=== PATIENT | female | born 1960 | race Caucasian/White ===

== ENCOUNTER 2017-01-23 18:34 | Inpatient (IN) | payer OTHER ==
[2017-01-23 18:55] VITALS: BMI 31.5
[2017-01-23] MEDS ORDERED: ALBUTEROL SO4 2.5/IPRATROPIUM 0.5 INH SOL 3 ML VIAL.NEB. NEB ONE ×2 (19:40→21:46)
--- NOTE | 2017-01-23 21:03 | PDOC ---
History of Present Illness - General Chief Complaint: Shortness of Breath Stated Complaint: SOB/BLOOD CLOT ON RT LEG Time Seen by Provider: 01/23/17 19:27 History Source: Patient Exam Limitations: No Limitations - History of Present Illness Initial Comments: 01/23/17 20:57 56yo Female patient w/ PmHx: Lupus- Sjogren's syndrome and asthma presents to ED c/o trouble breathing and Rt lower extremity swelling. Patient reports this past Thursday, she thought she felt a muscle spasm in her right leg, that progressed to pain in calf radiating up to buttocks. Patient states the following day, she developed chest pain and back pain w/ trouble breathing. She states using her Albuterol INH w/ minimal relief. Denies fever, hemoptysis, rectal bleeding, confusion, disorientation, or any other complaints at this time. Associated sweating reported. PCP- Lisette Zapien Timing/Duration: reports: week Severity: reports: moderate Episode Description: See HPI Possible Cause: Yes: no prior episodes Modifying Factors: improves with: albuterol nebulizer Associated Symptoms: reports: chest pain/soreness, shortness of breath, wheezing. denies: cough, dizziness, earache, facial pain, fever/chills, headache, lightheadedness, muscle aches, nasal congestion, nasal drainage, sinus infection, sore throat Past History - Travel Traveled outside of the country in the last 30 days: No Close contact w/someone who was outside of country & ill: No - Past Medical History Allergies/Adverse Reactions: Allergies Allergy/AdvReac Type Severity Reaction Status Date / Time aspirin AdvReac Intermediate Difficulty Verified 01/23/17 20:37 Breathing Home Medications: Ambulatory Orders Montelukast Sodium [Singulair] 10 mg PO DAILY 04/29/12 Acetaminophen W/ Codeine #3 [Tylenol # 3 -] 1 tab PO BID PRN #0 tablet 03/15/13 Albuterol 0.083% Nebulizer Bailey [Ventolin 0.083% Nebulizer Soln -] 1 neb NEB QID PRN #0 vial 03/15/13 Albuterol Sulfate Inhaler - [Ventolin HFA Inhaler -] 1 inh IH Q6H PRN #0 inh Bupropion HCl [Budeprion Xl] 150 mg PO DAILY #0 tab.sr.24h 05/28/13 Dexlansoprazole [Dexilant -] 60 mg PO DAILY #0 03/15/13 Folic Acid - 1 mg PO DAILY #0 tablet 03/15/13 Hydroxychloroquine So4 [Plaquenil -] 200 mg PO BID #0 tablet 03/15/13 Methotrexate [Mexate -] 6 tab PO WEEKLY #0 tablet 03/15/13 Multivitamin [Multivitamins] 1 each PO DAILY #0 capsule 03/15/13 Salmeterol/Fluticasone [Advair 500Mcg/50Mcg -] 1 inh IH DAILY #0 inh 03/15/13 Anemia: Yes Asthma: Yes DVT: Yes Other medical history: LUPUS - Surgical History Abdominal Surgery: Yes (gastric bypass,02/2013 ABD SURGERY) Cholecystectomy: Yes GI Surgery: Yes (SBO) - Psycho/Social/Smoking Cessation Hx Anxiety: No Suicidal Ideation: No Smoking Status: No Smoking History: Never smoked Have you smoked in the past 12 months: No Number of Cigarettes Smoked Daily: 0 Hx Alcohol Use: No Drug/Substance Use Hx: No Substance Use Type: None Hx Substance Use Treatment: No Respiratory Specific PMHX - Complaint Specific PMHX Angina: No Bronchitis: No Pneumonia: No Pulmonary Embolus: No TB (Tuberculosis): No Review of Systems - Review of Systems Able to Perform ROS?: Yes Is the patient limited Tristanian proficient: No Constitutional: No: Chills, Fever, Malaise, Night Sweats HEENTM: No: Nose Congestion, Nose Bleeding Respiratory: Yes: Shortness of Breath, Wheezing. No: Cough, Orthopnea, SOB with Exertion, SOB at Rest, Stridor, Productive cough Cardiac (ROS): Yes: Chest Pain. No: Edema, Lightheadedness, Palpitations, Syncope, Chest Tightness ABD/GI: No: Constipated, Diarrhea, Nausea, Poor Appetite, Poor Fluid Intake, Rectal Bleeding, Vomiting, Abdominal cramping : No: Burning, Dysuria, Discharge, Frequency, Flank Pain, Hematuria, Pain Musculoskeletal: Yes: Back Pain, Muscle Pain (Rt Leg) Integumentary: Yes: Sweating. No: Bruising, Erythema, Pruritus, Rash Neurological: No: Headache, Numbness, Paresthesia, Seizure, Tingling, Tremors, Weakness, Unsteady Gait, Ataxia, Dizziness All Other Systems: Reviewed and Negative *Physical Exam - Vital Signs Last Vital Signs Temp Pulse Resp BP Pulse Ox 98.3 F 102 H 20 132/68 99 01/23/17 18:50 01/23/17 18:50 01/23/17 18:50 01/23/17 18:50 01/23/17 18:50 - Physical Exam General Appearance: Yes: Nourished, Appropriately Dressed, Apparent Distress, Mild Distress. No: Moderate Distress, Severe Distress HEENT: positive: EOMI, CAMMIE, Normal ENT Inspection, Normal Voice, Symmetrical, TMs Normal, Pharynx Normal. negative: Pharyngeal Erythema, Tonsillar Exudate, Tonsillar Erythema, TM Bulging, TM Dull, TM Erythema Neck: positive: Trachea midline, Supple. negative: Stridor, Lymphadenopathy (R) , Lymphadenopathy (L) Respiratory/Chest: positive: Wheezing. negative: Respiratory Distress, Accessory Muscle Use, Labored Respiration, Rapid RR, Decreased Breath Sounds, Paradoxal Breathing Cardiovascular: positive: Regular Rhythm, Regular Rate. negative: Edema, JVD, Murmur Gastrointestinal/Abdominal: positive: Normal Bowel Sounds, Soft. negative: Distended, Guarding, Rebound, Tenderness Musculoskeletal: positive: Normal Inspection. negative: CVA Tenderness Extremity: positive: Normal Capillary Refill, Normal Inspection, Normal Range of Motion, Swelling, Calf Tenderness (+ Nitza's sign) Integumentary: positive: Normal Color, Dry, Warm Neurologic: positive: hospital manager II-XII NML intact, Fully Oriented, Alert, Normal Mood/ Affect, Normal Response, Motor Strength 5/5 ED Treatment Course - LABORATORY CBC & Chemistry Diagram: 01/23/17 22:13 01/23/17 22:13 - RADIOLOGY Radiology Studies Ordered: Category Date Time Status CHEST PA & LAT [RAD] Stat Radiology 01/23/17 19:40 Ordered DUPLEX VASCUL US-1 LEG [US] Stat Ultrasound 01/23/17 19:40 Ordered *DC/Admit/Observation/Transfer Diagnosis at time of Disposition: Deep vein thrombosis (DVT) Qualifiers: DVT location: lower extremity Affected thrombotic vein of extremity: unspecified vein of extremity Laterality: right Chronicity: acute Qualified Code (s): I82.401 - Acute embolism and thrombosis of unspecified deep veins of right lower extremity Pulmonary embolism Qualifiers: Pulmonary embolism type: other Chronicity: acute Acute cor pulmonale presence: without acute cor pulmonale Qualified Code(s): I26.99 - Other pulmonary embolism without acute cor pulmonale - Discharge Dispostion Condition at time of disposition: Fair Admit: Yes
[2017-01-23] MEDS ORDERED: ACETAMINOPHEN WITH CODEINE 300MG/30MG TABLET PO ONE (22:19)
[2017-01-23 22:25] LABS: MCH 21.1 pg (25.7-33.7); MCHC 30.5 g/dl (32.0-36.0); MEAN CELL VOLUME 69.2 fl (80-96); MEAN PLT VOLUME 7.9 fl (7.5-11.1); PLATELET COUNT 397 K/MM3 (134-434); RDW 20.6 % (11.6-15.6); WHITE BLOOD COUNT 9.2 K/mm3 (4.0-10.0)
[2017-01-23] MEDS ORDERED: ACETAMINOPHEN WITH CODEINE 300MG/30MG TABLET ONE (22:39)
[2017-01-23 23:01] LABS: ALBUMIN 3.2 g/dl (3.4-5.0); ANION GAP 10 (8-16); BILIRUBIN,TOTAL 0.4 mg/dL (0.2-1.0); CALCIUM 8.6 mg/dL (8.5-10.1); CO2 27 mmol/L (21-32); COCKROFT - GAULT 115.515; CREATININE 0.6 mg/dL (0.55-1.02); GLUCOSE,RANDOM 84 mg/dL (74-106); SGOT/AST 15 U/L (15-37); SGPT/ALT 10 U/L (12-78); TOT PROT 8.4 g/dl (6.4-8.2)
[2017-01-23 23:03] LABS: ALK PHOS 120 U/L (45-117); TROPONIN I < 0.02 ng/ml (0.00-0.05)
[2017-01-23 23:42] LABS: INR 1.15 (0.82-1.09); PROTHROMBIN TIME (PATIENT) 12.7 SEC (9.98-11.88)
[2017-01-23 23:45] LABS: ACTIVATED PTT 28.7 SECONDS (26.9-34.4)
[2017-01-24 00:27] LABS: ANISOCYTOSIS 2+; HYPOCHROMIA 2+; MICROCYTOSIS 2+; PLATELET COMMENT2 NO CLOTTING DETECTED; PLATELET COMMENT3 FEW LARGE PLTS; PLATELET ESTIMATE ADEQUATE (NORMAL); POIKILOCYTOSIS 2+; POLYCHROMASIA 1+; SPHEROCYTE 1+
[2017-01-24] MEDS ORDERED: ENOXAPARIN NA (PORCINE) 80 MG/0.8 ML DISP.SYRIN SQ SCH (00:45)
[2017-01-24] MEDS ORDERED: ENOXAPARIN NA (PORCINE) 80 MG/0.8 ML DISP.SYRIN SQ ONE ×2 (00:45→00:48)
[2017-01-24] MEDS ORDERED: ENOXAPARIN NA (PORCINE) 40 MG/0.4 ML DISP.SYRIN SQ ONE ×2 (00:47→03:12)
[2017-01-24] MEDS ORDERED: OXYCODONE/APAP 5/325MG COMBO TABLET PO ONE ×3 (01:22→19:01)
[2017-01-24] MEDS ORDERED: OXYCODONE/APAP 5/325MG COMBO TABLET ONE ×2 (02:00→18:59)
--- NOTE | 2017-01-24 02:28 | HP ---
[id number] Puja Lorenzo HISTORY OF PRESENT ILLNESS: 56 year old female with complaint of difficulty breathing and right lower extremity swelling. Patient reports right LE swelling and pain radiating to the buttocks since . Patient states the following day, she developed chest pain and back pain with associated SOB. She reports SOB relief after use of her abuterol and nebulizer. Patient had a LE duplex done 01/05/16 and left leg was negative for DVT. Denies fever, chills, hemoptysis, nausea, vomiting, diarrhea, constipation, rectal bleeding, confusion, disorientation, headache or vision changes. ER course was notable for: (1) Chest CTA (2) LE vascular duplex Recent Travel: none PAST MEDICAL HISTORY: LE DVT, Lupus, Sjogren's syndrome, fibromyalgia and asthma PAST SURGICAL HISTORY: cholecystectomy, gastric bypass,02/2013, IVC filter in place, splenectomy, SBO, decealisis Social History: Smoking: no Alcohol: no Drugs: no Family History: mother asthma, thrombosis; father heart disease history Allergies aspirin Adverse Reaction (Intermediate, Verified 01/23/17 20:37) Difficulty Breathing Triggers asthma attack HOME MEDICATIONS: Home Medications Medication Instructions Recorded Montelukast Sodium [Singulair] 10 mg PO DAILY 04/29/12 Acetaminophen W/ Codeine #3 1 tab PO BID PRN #0 tablet 03/15/13 [Tylenol # 3 -] Albuterol 0.083% Nebulizer Bailey 1 neb NEB QID PRN #0 vial 03/15/13 [Ventolin 0.083% Nebulizer Soln -] Albuterol Sulfate Inhaler - 1 inh IH Q6H PRN #0 inh 03/15/13 [Ventolin HFA Inhaler -] Bupropion HCl [Budeprion Xl] 150 mg PO DAILY #0 tab.sr.24h 03/15/13 Dexlansoprazole [Dexilant -] 60 mg PO DAILY #0 03/15/13 Folic Acid - 1 mg PO DAILY #0 tablet 03/15/13 Hydroxychloroquine So4 [Plaquenil 200 mg PO BID #0 tablet 03/15/13 -] Methotrexate [Mexate -] 6 tab PO WEEKLY #0 tablet 03/15/13 Multivitamin [Multivitamins] 1 each PO DAILY #0 capsule 05/28/13 Salmeterol/Fluticasone [Advair 1 inh IH DAILY #0 inh 03/15/13 500Mcg/50Mcg -] REVIEW OF SYSTEMS CONSTITUTIONAL: Absent: fever, chills, diaphoresis, generalized weakness, malaise, loss of appetite, weight change HEENT: Absent: rhinorrhea, nasal congestion, throat pain, throat swelling, difficulty swallowing, mouth swelling, ear pain, eye pain, visual changes CARDIOVASCULAR: Present: chest pain Absent: syncope, palpitations, irregular heart rate, lightheadedness, peripheral edema RESPIRATORY: Present: SOB Absent: cough, dyspnea with exertion, orthopnea, wheezing, stridor, hemoptysis GASTROINTESTINAL: Absent: abdominal pain, abdominal distension, nausea, vomiting, diarrhea, constipation, melena, hematochezia GENITOURINARY: Absent: dysuria, frequency, urgency, hesitancy, hematuria, flank pain, genital pain MUSCULOSKELETAL: Present: R LE pain Absent: myalgia, arthralgia, joint swelling, back pain, neck pain SKIN: Absent: rash, itching, pallor HEMATOLOGIC/IMMUNOLOGIC: Absent: easy bleeding, easy bruising, lymphadenopathy, frequent infections ENDOCRINE: Absent: unexplained weight gain, unexplained weight loss, heat intolerance, cold intolerance NEUROLOGIC: Absent: headache, focal weakness or paresthesias, dizziness, unsteady gait, seizure, mental status changes, bladder or bowel incontinence PSYCHIATRIC: Absent: anxiety, depression, suicidal or homicidal ideation, hallucinations. PHYSICAL EXAMINATION Vital Signs - 24 hr 01/23/17 18:50 Temperature 98.3 F Pulse Rate 102 H Respiratory 20 Rate Blood Pressure 132/68 O2 Sat by Pulse 99 Oximetry (%) GENERAL: Awake, alert, and fully oriented, in no acute distress. HEAD: Normal with no signs of trauma. EYES: Pupils equal, round and reactive to light, extraocular movements intact, sclera anicteric, conjunctiva clear. No lid lag. EARS, NOSE, THROAT: Ears normal, nares patent, oropharynx clear without exudates. Moist mucous membranes. NECK: Normal range of motion, supple without lymphadenopathy, JVD, or masses. LUNGS: +Bilateral basal crackles. Breath sounds equal. No wheezes. No accessory muscle use. HEART: Regular rate and rhythm, normal S1 and S2 without murmur, rub or gallop. ABDOMEN: Soft, nontender, not distended, normoactive bowel sounds, no guarding, no rebound, no masses. No hepatomegaly or splenomegaly. MUSCULOSKELETAL: Normal range of motion at all joints. No bony deformities or tenderness. No CVA tenderness. UPPER EXTREMITIES: 2+ pulses, warm, well-perfused. No cyanosis. No clubbing. No peripheral edema. LOWER EXTREMITIES: +Vessels engorged R LE, +R LE edema, +palpable pulses, warm, well-perfused. No calf tenderness NEUROLOGICAL: Cranial nerves II-XII intact. Normal speech. Normal gait. PSYCHIATRIC: Cooperative. Good eye contact. Appropriate mood and affect. SKIN: Warm, dry, normal turgor, no rashes or lesions noted, normal capillary refill. Laboratory Results - last 24 hr 01/23/17 01/23/17 01/23/17 20:20 20:20 20:20 WBC Cancelled Corrected WBC (auto) Cancelled RBC Cancelled Hgb Cancelled Hct Cancelled MCV Cancelled MCHC Cancelled RDW Cancelled Plt Count Cancelled MPV Cancelled Neutrophils % Cancelled Lymphocytes % Cancelled Monocytes % Cancelled Eosinophils % Cancelled Basophils % Cancelled Band Neutrophils Differential Comment Cancelled Smudge Cells Cancelled Platelet Estimate Cancelled Platelet Comment Cancelled RBC Morphology Cancelled Polychromasia Hypochromic-Microcytic Poikilocytosis Anisocytosis Microcytosis Spherocytes INR Cancelled PTT (Actin FS) Cancelled Sodium Cancelled Potassium Cancelled Chloride Cancelled Carbon Dioxide Cancelled Anion Gap Cancelled BUN Cancelled Creatinine Cancelled Creat Clearance w eGFR Cancelled Random Glucose Cancelled Calcium Cancelled Total Bilirubin Cancelled AST Cancelled ALT Cancelled Alkaline Phosphatase Cancelled Creatine Kinase Cancelled Troponin I Cancelled B-Natriuretic Peptide Cancelled Total Protein Cancelled Albumin Cancelled 01/23/17 01/23/17 01/23/17 22:13 22:13 22:13 WBC 9.2 D Corrected WBC (auto) RBC 4.14 Hgb 8.7 L D Hct 28.7 L MCV 69.2 L MCHC 30.5 L RDW 20.6 H Plt Count 397 MPV 7.9 Neutrophils % 70.0 D Lymphocytes % 21.0 D Monocytes % 6.0 Eosinophils % 2.0 Basophils % Band Neutrophils 2.0 D Differential Comment Smudge Cells Platelet Estimate Adequate Platelet Comment No clotting detected RBC Morphology Polychromasia 1+ Hypochromic-Microcytic 2+ Poikilocytosis 2+ Anisocytosis 2+ Microcytosis 2+ Spherocytes 1+ INR 1.15 H PTT (Actin FS) 28.7 D Sodium 140 Potassium 3.8 Chloride 103 Carbon Dioxide 27 Anion Gap 10 BUN 9 Creatinine 0.6 Creat Clearance w eGFR > 60 Random Glucose 84 Calcium 8.6 Total Bilirubin 0.4 D AST 15 ALT 10 L D Alkaline Phosphatase 120 H Creatine Kinase 70 Troponin I < 0.02 B-Natriuretic Peptide Total Protein 8.4 H Albumin 3.2 L IMAGING: EXAM: US/DUPLEX VASCUL US-1 LEG Right lower extremity Doppler venous ultrasound. Grayscale, pulsed Doppler and color Doppler interrogation of the right lower extremity deep venous system was performed. The right common femoral vein, superficial femoral vein, popliteal and posterior tibial vein were identified with normal flow and compression of the common femoral and proximal superficial femoral. There is noncompression of the mid common femoral down to the popliteal vein with some flow seen in the popliteal vein consistent with deep venous thrombosis. Flow is present within the posterior tibial vein with suggestion of partial thrombosis. Greater saphenous and deep femoral vein are patent No Church's cyst is identified in the popliteal fossa. Impression: Findings consistent with deep venous thromboses extending from the mid superficial femoral down to the distal portion of the popliteal vein with suggestion of partial thrombosis of the posterior tibial vein. Follow-up is needed Reported By: Gwendolyn Hui MD 01/23/17 [id number] EXAM:RAD/CHEST PA LAT Since 03/10/2013, the cardiac silhouette remains slightly enlarged with mild unfolding of the aortic arch. Bilateral increased interstitial markings again seen with suggestion of a small hiatus hernia. Minimal blunting of the left costophrenic angle suggestive of pleural thickening versus minimal effusion. Notes made of surgical metallic clips in the right upper abdomen. Mediastinum and visualized osseous structures appear intact Impression: Mild cardiomegaly and bilateral increased interstitial markings without evidence of focal infiltrates. Questionable minimal left pleural effusion. Small hiatus hernia that was also noted on prior CT scan of the abdomen dated 01/05/2016 Reported By: Gwendolyn Hui MD 01/23/17 [id number] THIS IS A PRELIMINARY REPORT FROM [facility] EXAM DATE AND TIME: 2017-01-23 23:54:50.0 EXAM: CTA CHEST Nodular scarring right upper lobe, advise follow-up. Pulmonary emboli right upper lobe. No aortic dissection or aneurysm. No pneumonia or pleural effusions. Subcentimeter cysts and calcifications right thyroid lobe. Cholecystectomy. Surgical changes stomach. Moderate hiatal hernia. THIS DOCUMENT HAS BEEN ELECTRONICALLY SIGNED Danica Frederick M.D. Documentation prepared by DAVID Tobias, acting as medical administrator for Eliz Diaz MD. <Eliz Diaz - Last Filed: 02/12/17 01:00> Problem List - Problem (1) Deep vein thrombosis (DVT) of right lower extremity Assessment/Plan: Lovenox 1.5mg/kg daily consider hematology consult for permanent anticoagulation recommendations Code(s): I82.401 - ACUTE EMBOLISM AND THOMBOS UNSP DEEP VEINS OF R LOW EXTREM (2) Pulmonary embolism Assessment/Plan: Anticoagulation ECHO Code(s): I26.99 - OTHER PULMONARY EMBOLISM WITHOUT ACUTE COR PULMONALE Qualifiers: Pulmonary embolism type: other Chronicity: acute Acute cor pulmonale presence: without acute cor pulmonale Qualified Code(s): I26.99 - Other pulmonary embolism without acute cor pulmonale (3) H/O Sjogren's disease Code(s): Z87.39 - PERSONAL HISTORY OF DISEASES OF THE MS SYS AND CONN TISS (4) H/O systemic lupus erythematosus (SLE) Code(s): Z87.39 - PERSONAL HISTORY OF DISEASES OF THE MS SYS AND CONN TISS (5) H/O deep venous thrombosis Assessment/Plan: Code(s): Z86.718 - PERSONAL HISTORY OF OTHER VENOUS THROMBOSIS AND EMBOLISM Visit type - Emergency Visit Emergency Visit: Yes ED Registration Date: 01/24/17 Care time: The patient presented to the Emergency Department on the above date and was hospitalized for further evaluation of their emergent condition. - New Patient This patient is new to me today: Yes Date on this admission: 02/12/17 - Critical Care Critical Care patient: No
[2017-01-24] MEDS ORDERED: ZOLPIDEM TARTRATE 5 MG TABLET PO STA (03:11)
[2017-01-24] MEDS ORDERED: ENOXAPARIN NA (PORCINE) 100 MG/1 ML DISP.SYRIN SQ ONE (04:05)
--- NOTE | 2017-01-24 15:09 | CONSULT ---
Consult Consult Specialty:: Hematology/Oncology Referred by:: Reason for Consultation:: New DVT and pulmonary emboli - History of Present Illness Chief Complaint: Shortness of Breath History of Present Illness: is a 56 y/o female with a past medical history of SLE, Sjogrens and fibromyalgia diagnosed in 1996.She follows with Medical Staff Manager and has been on treatment that includes plaquenil, she is on gabapentin for treatment of her fibromyalgia. She had a Paul IVC filter placed in 1996 due to thrombosis. She subsequently had another DVT in 2007? on the left side. She has had gastric sleeve surgery in 2007 complicated by intestinal obstruction, splenic rupture, liver laceration. She has had vascular procedures for peripheral vascular disease with previously. She now presented to the hospital as she had been having shortness of breath since thursday last week which progressed to the point that she could not lay down straight and had to sleep in a sitting up position by . She then came to the [facility] ED where work-up revealed the presence of a large right LE DVT and multiple small pulmonary emboli. also says that of late -she ahs been having increased flare up of her SLE/Sjogrens which usually presents like joint swelling. She is a non-smoker, non-drinker, lives with her grandson, has 4 living children and Hx of 2 spontaneous miscarriages in the past. 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 Cardio/Vascular: Yes: Deep Vein Thrombosis Pulmonary: Yes: Asthma Gastrointestinal: Yes: Other (Hx of intestinal obstruction ) Hepatobiliary: Yes: Other (asplenia ) Reproductive: Yes: Other ( losses ) ...LMP: 01/22/12 ...: No Musculoskeletal: Yes: Other (fibromyalgia ) Rheumatology: Yes: Lupus, Other (Sjogrens syndrome ) - Alcohol/Substance Use Hx Alcohol Use: No History of Substance Use: reports: None - Smoking History Smoking history: Never smoked Have you smoked in the past 12 months: No Aproximately how many cigarettes per day: 0 - Social History Usual Living Arrangement: With Child History of Recent Travel: No Home Medications - Allergies Allergies/Adverse Reactions: Allergies Allergy/AdvReac Type Severity Reaction Status Date / Time aspirin AdvReac Intermediate Difficulty Verified 01/23/17 20:37 Breathing - Home Medications Home Medications: Ambulatory Orders Montelukast Sodium [Singulair] 10 mg PO DAILY 04/29/12 Acetaminophen W/ Codeine #3 [Tylenol # 3 -] 1 tab PO BID PRN #0 tablet 03/15/13 Albuterol 0.083% Nebulizer Bailey [Ventolin 0.083% Nebulizer Soln -] 1 neb NEB QID PRN #0 vial 03/15/13 Albuterol Sulfate Inhaler - [Ventolin HFA Inhaler -] 1 inh IH Q6H PRN #0 inh Bupropion HCl [Budeprion Xl] 150 mg PO DAILY #0 tab.sr.24h 03/15/13 Dexlansoprazole [Dexilant -] 60 mg PO DAILY #0 cap.mp 03/15/13 Folic Acid - 1 mg PO DAILY #0 tablet 03/15/13 Hydroxychloroquine So4 [Plaquenil -] 200 mg PO BID #0 tablet 03/15/13 Methotrexate [Mexate -] 6 tab PO WEEKLY #0 tablet 03/15/13 Multivitamin [Multivitamins] 1 each PO DAILY #0 capsule 03/15/13 Salmeterol/Fluticasone [Advair 500Mcg/50Mcg -] 1 inh IH DAILY #0 inh 03/15/13 Gabapentin [Neurontin] 300 mg PO BID 01/24/17 Review of Systems - Review of Systems Respiratory: reports: SOB Musculoskeletal: reports: Other (right leg swelling) Physical Exam Vital Signs: Vital Signs Temperature 98.3 F 01/24/17 11:18 Pulse Rate 78 01/24/17 11:18 Respiratory Rate 18 01/24/17 11:18 Blood Pressure 131/71 01/24/17 11:18 O2 Sat by Pulse Oximetry (%) 100 01/24/17 11:18 Constitutional: Yes: Well Nourished Eyes: Yes: WNL HENT: Yes: WNL Neck: Yes: WNL Cardiovascular: Yes: WNL Respiratory: Yes: CTA Bilaterally Gastrointestinal: Yes: WNL Renal/: Yes: WNL Breast(s): Yes: WNL Musculoskeletal: Yes: WNL Extremities: Yes: WNL Edema: Yes Edema: RLE: 1+ Integumentary: Yes: WNL Neurological: Yes: WNL ...Motor Strength: WNL Psychiatric: Yes: WNL Assessment/Plan 56 y/o female with Hx of SLE/Sjogrens, fibromyalgia, asthma , Hx of multiple prior DVT's with Green filed IVC filter in place per her report now admitted with an acute right lower extremity DVT and pulmonary emboli. Tests performed during this admission include a vascular study of lower extremities which showed a large DVT extending from mid superficial femoral to distal popliteal vein with partial thrombosis in posterior tibial vein. CT chest performed during this admission shows the presene of acute pulmonary emboli in right upper lobe artery , posterior segmental branch of right lower lobe artery, multiple pulmonary opacities and a right axillary lymph node that is increased in size from prior - 1.3 cms now from 0.9 cms before recommendations are as follows - agree with primary team forinitiation of low molecular weight heparin (lovenox ) for now (initiate treatment at 1 mg/kg Q12H) with plan to bridge to a NOAC ( choice would be dictated by patient preference and coverage). Patient needs lifelong anticoagulation given her high risk with previous unprovoked DVT's. -Unclear if patient has serological work-up for antiphospholipid syndrome, please request records from her service worker , if not, she needs to follow with Hematology to initiate work-up once she is over this acute episode -would request vascular surgery also on board to asses patency of filter, need for filter replacement if filter has itself become a nidus for thrombus formation -request surgical consult for biopsy of right axillary lynph node for malignancy work-up as node has increased in size over time. Please also request records from her PCP about recent mammograms, colon cancer screening etc to see if she has undergone age appropriate screening -patient also has anemia with Hgb of 8.7 on labs with a low MCV. This coupled with Hx of gastric bypass surgery is a concern for iron deficiency along with micronutrient deficiency. Please obtain iron panel ( serum iron, ferritin, TIBC , transferrin) and copper levels. -Will continue to follow, please call with further questions.
--- NOTE | 2017-01-24 16:19 | EKG ---
Test Reason : Blood Pressure : / mmHG Vent. Rate : 080 BPM Atrial Rate : 080 BPM P-R Int : 144 ms QRS Dur : 100 ms QT Int : 400 ms P-R-T Axes : 043 -13 007 degrees QTc Int : 461 ms NORMAL SINUS RHYTHM POSSIBLE ANTERIOR INFARCT , AGE UNDETERMINED ABNORMAL ECG WHEN COMPARED WITH ECG OF 10-MAR-2013 11:44, NO SIGNIFICANT CHANGE WAS FOUND Confirmed by WALESKA RAINEY MD ([id number]) on 01/24/2017 4:19:12 PM Referred By: Confirmed By:WALESKA RAINEY MD
[2017-01-24] MEDS ORDERED: ALBUTEROL SO4 0.083% IH SOL 2.5 MG/3 ML VIAL.NEB. NEB PRN (16:43)
[2017-01-24] MEDS ORDERED: ENOXAPARIN NA (PORCINE) 120 MG/0.8 ML DISP.SYRIN SQ ONE (17:28)
--- NOTE | 2017-01-24 17:34 | HOSP ---
Subjective - Review of Symptoms Subjective: pt evaluated and hemodynamiclly stable. mild pleuritic CP on deep inspiration, pain and swelling in RLE improved Plan 1. DVT/PE- concern for patency of IVC filter, will consult vascular surgeon to assess if IVC filter require replacement. pt was on coumadin in the past and stopped. will require life-long anticoagulation due to risk factors. will give lovenox 110mcg now. counseled on options for anticoagulation, wants time to decide and further discussion with brim buster about best option. echo pending. continuous cardiac monitoring 2. SLE- home medications re-started Physical Examination Vital Signs: Vital Signs Temperature 98.3 F 01/24/17 11:18 Pulse Rate 76 01/24/17 15:18 Respiratory Rate 19 01/24/17 15:18 Blood Pressure 130/73 01/24/17 15:18 O2 Sat by Pulse Oximetry (%) 100 01/24/17 15:18
[2017-01-24] MEDS ORDERED: ENOXAPARIN NA (PORCINE) 60 MG/0.6 ML DISP.SYRIN SQ ONE (18:12)
[2017-01-24] MEDS: GABAPENTIN 300 MG CAPSULE (FP) PO SCH (22:31)
[2017-01-24] MEDS: HYDROXYCHLOROQUINE SO4 200 MG TABLET (FP) PO SCH (22:57)
[2017-01-24] MEDS: BUDESONIDE/FORMETEROL FUMARATE 160/4.5 mcg INHALER IH SCH (22:58)
[2017-01-24] MEDS ORDERED: ACETAMINOPHEN 325 MG TABLET (FP) PO ONE (23:27)
[2017-01-24] MEDS ORDERED: guaiFENesin 200 MG/10 ML 10 ML UNIT-DOSE CUPS PO PRN (23:33)
[2017-01-25] MEDS ORDERED: oxyCODONE HCL 5 MG TABLET PO ONE (00:50)
[2017-01-25] MEDS ORDERED: ENOXAPARIN NA (PORCINE) 40 MG/0.4 ML DISP.SYRIN SQ ONE (01:00)
[2017-01-25] MEDS ORDERED: oxyCODONE HCL 5 MG TABLET ONE (01:10)
[2017-01-25] MEDS: ZOLPIDEM TARTRATE 5 MG TABLET PO PRN (01:13)
[2017-01-25] MEDS ORDERED: PT OWN MED DRAWER 7, Y5N ONE (10:21)
[2017-01-25] MEDS: GABAPENTIN 300 MG CAPSULE (FP) PO SCH ×2 (10:22→21:47)
[2017-01-25] MEDS: MONTELUKAST NA 10 MG TABLET PO SCH (10:22)
[2017-01-25] MEDS: FOLIC ACID 1 MG TABLET (FP) PO SCH (10:22)
[2017-01-25] MEDS: MULTIVITAMINS (DAILY MVI) TABLET (FP) PO SCH (10:22)
[2017-01-25] MEDS: BUDESONIDE/FORMETEROL FUMARATE 160/4.5 mcg INHALER IH SCH ×2 (10:23→21:47)
[2017-01-25] MEDS: HYDROXYCHLOROQUINE SO4 200 MG TABLET (FP) PO SCH ×2 (10:23→21:47)
--- NOTE | 2017-01-25 13:09 | PN ---
Progress Note (short form) - Note Progress Note: c/o intermittent pleuritic CP worse on deep inspiration. some mild tenderness on RLE. denies CP, SOB,fever, chills, N/V/C/D Current Medications Generic Name Dose Route Start Last Admin Trade Name Freq PRN Reason Stop Dose Admin Albuterol Sulfate 1 amp 01/24/17 16:43 Ventolin 0.083% Nebulizer Soln - NEB QID PRN WHEEZING Budesonide/Formoterol Fumarate 1 puff 01/24/17 22:00 01/25/17 10:23 Symbicort 160/4.5mcg - IH 1 puff BID MAGO Administration Bupropion HCl 150 mg 01/25/17 10:00 Wellbutrin Xl - PO DAILY MAGO Enoxaparin Sodium 110 mg 01/25/17 13:00 Lovenox - SQ DAILY MAGO Folic Acid 1 mg 01/25/17 10:00 01/25/17 10:22 Folic Acid - PO 1 mg DAILY MAGO Administration Gabapentin 300 mg 01/24/17 22:00 01/25/17 10:22 Neurontin - PO 300 mg BID MAGO Administration Guaifenesin 10 ml 01/24/17 23:33 01/24/17 23:45 Robitussin - PO 10 ml Q6H PRN Administration COUGH Hydroxychloroquine Sulfate 200 mg 01/24/17 22:00 01/25/17 10:23 Plaquenil - PO 200 mg BID MAGO Administration Methotrexate 15 mg 01/26/17 10:00 Mexate - PO Mo@10 MAGO Montelukast Sodium 10 mg 01/25/17 10:00 01/25/17 10:22 Singulair - PO 10 mg DAILY MAGO Administration Multivitamins/Minerals/Vitamin C 1 tab 01/25/17 10:00 01/25/17 10:22 Tab-A-Vit - PO 1 tab DAILY MAGO Administration Zolpidem Tartrate 5 mg 01/24/17 04:33 01/25/17 01:13 Ambien - PO 5 mg HS PRN Administration Last Vital Signs Temp Pulse Resp BP Pulse Ox 97.9 F 96 H 18 105/68 99 01/25/17 10:00 01/25/17 10:00 01/25/17 10:00 01/25/17 10:00 01/25/17 10:00 General NAD CV S1 S2 RRR no murmur/rub/extremities Lungs CTA B/L no wheezing/rales/rhonchi Extremities no edema B/L UEor LE. no tenderness Assessment and plan 56yo F with PMH SLE, DVT s/p IVC filter, sjogren presented to the ER and was admitted to the ER for further evaluation of their emergent condition 1. DVT/PE- clinically stable. started on full dose lovenox. will confirm with insurance which NOAC is covered, but cont with lovenox for now in case of procedure necessary. Vascular surgery consulted. spoke with PA and expressed concern for patency of IVC filter and if thrombectomy is indicated due to extension of DVT. will doppler B/L UE to confirm PE is not from UE. hemodynamically stable. 2. SLE- no indictions of flare at this time. on MTX, folic acid, plaquenil. ( takes mtx on thursday, did not take this week will give dose today) 3. Microcytic anemia- no signs of bleeding. Hgb appears to be at baseline. check iron studies 4. DVT ppx- full dose lovenox Visit type - Emergency Visit Emergency Visit: Yes ED Registration Date: 01/24/17 Care time: The patient presented to the Emergency Department on the above date and was hospitalized for further evaluation of their emergent condition. - New Patient This patient is new to me today: No - Critical Care Critical Care patient: No - Discharge Referral Referred to [facility] Med [facility].C.: No
[2017-01-25] MEDS ORDERED: OXYCODONE/APAP 5/325MG COMBO TABLET PO PRN (13:11)
[2017-01-25] MEDS: ENOXAPARIN NA (PORCINE) 120 MG/0.8 ML DISP.SYRIN SQ SCH (13:34)
[2017-01-25] MEDS ORDERED: METHOTREXATE 2.5 MG TABLET PO ONE (15:30)
--- NOTE | 2017-01-25 15:40 | CONSULT ---
Consult - History of Present Illness History of Present Illness: 56 y/o female with history of [place] IVC filter placed in 1996 due to thrombosis. She subsequently had another DVT in the left leg. She has not been on any anticoagulation for several years. She now presented to the hospital as she had been having shortness of breath last week. Duplex showed right LE DVT and multiple small pulmonary emboli. 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 Cardio/Vascular: Yes: Deep Vein Thrombosis Pulmonary: Yes: Asthma Gastrointestinal: Yes: Other (Hx of intestinal obstruction ) Hepatobiliary: Yes: Other (asplenia ) ...LMP: 01/22/12 ...: No Musculoskeletal: Yes: Other (fibromyalgia ) Rheumatology: Yes: Lupus, Other (Sjogrens syndrome ) - Alcohol/Substance Use Hx Alcohol Use: No History of Substance Use: reports: None - Smoking History Smoking history: Never smoked Have you smoked in the past 12 months: No Aproximately how many cigarettes per day: 0 - Social History Usual Living Arrangement: With Child History of Recent Travel: No Home Medications - Allergies Allergies/Adverse Reactions: Allergies Allergy/AdvReac Type Severity Reaction Status Date / Time aspirin AdvReac Intermediate Difficulty Verified 01/23/17 20:37 Breathing - Home Medications Home Medications: Ambulatory Orders Montelukast Sodium [Singulair] 10 mg PO DAILY 04/29/12 Acetaminophen W/ Codeine #3 [Tylenol # 3 -] 1 tab PO BID PRN #0 tablet 03/15/13 Albuterol 0.083% Nebulizer Bailey [Ventolin 0.083% Nebulizer Soln -] 1 neb NEB QID PRN #0 vial 03/15/13 Albuterol Sulfate Inhaler - [Ventolin HFA Inhaler -] 1 inh IH Q6H PRN #0 inh Bupropion HCl [Budeprion Xl] 150 mg PO DAILY #0 tab.sr.24h 03/15/13 Dexlansoprazole [Dexilant -] 60 mg PO DAILY #0 03/15/13 Folic Acid - 1 mg PO DAILY #0 tablet 03/15/13 Hydroxychloroquine So4 [Plaquenil -] 200 mg PO BID #0 tablet 03/15/13 Methotrexate [Mexate -] 6 tab PO WEEKLY #0 tablet 03/15/13 Multivitamin [Multivitamins] 1 each PO DAILY #0 capsule 03/15/13 Salmeterol/Fluticasone [Advair 500Mcg/50Mcg -] 1 inh IH DAILY #0 inh 03/15/13 Gabapentin [Neurontin] 300 mg PO BID 01/24/17 Physical Exam Vital Signs: Vital Signs Temperature 97.9 F 01/25/17 10:00 Pulse Rate 96 H 01/25/17 10:00 Respiratory Rate 18 01/25/17 10:00 Blood Pressure 105/68 01/25/17 10:00 O2 Sat by Pulse Oximetry (%) 99 01/25/17 10:00 Constitutional: Yes: No Distress Eyes: Yes: WNL HENT: Yes: WNL Neck: Yes: Supple Respiratory: Yes: Regular Gastrointestinal: Yes: Soft Edema: Yes Edema: LLE: 2+, RLE: 2+ Peripheral Pulses WNL: Yes Problem List - Problems (1) DVT (deep venous thrombosis) Assessment/Plan: New DVT in right femoral and popliteal vein in patient with past history of DVT. No history of hypercoagulable workup. Currently on Lovenox. Transition to Coumadin or NOAC. Recommend hematology consult for hypercoagulable work-up. Code(s): I82.409 - ACUTE EMBOLISM AND THOMBOS UNSP DEEP VN UNSP LOWER EXTREMITY Qualifiers: DVT location: lower extremity Affected thrombotic vein of extremity: unspecified vein of extremity Laterality: right Chronicity: acute Qualified Code(s): I82.401 - Acute embolism and thrombosis of unspecified deep veins of right lower extremity (2) Pulmonary embolism Assessment/Plan: New PE with indwelling IVC filter. No evidence for caval thrombosis (both legs would be swollen). Other source in upper extremity should be sought. Routine anticoagulation for DVT/PE recommended. I do not think a second filter is necessary unless a source can be identified. Life-long A/C will probable be needed. Code(s): I26.99 - OTHER PULMONARY EMBOLISM WITHOUT ACUTE COR PULMONALE Qualifiers: Pulmonary embolism type: other Chronicity: acute Acute cor pulmonale presence: without acute cor pulmonale Qualified Code(s): I26.99 - Other pulmonary embolism without acute cor pulmonale
[2017-01-25] MEDS ORDERED: ACETAMINOPHEN 325 MG TABLET (FP) PO PRN (16:24)
[2017-01-26 07:58] LABS: MCH 21.3 pg (25.7-33.7); MCHC 30.4 g/dl (32.0-36.0); MEAN CELL VOLUME 70.1 fl (80-96); MEAN PLT VOLUME 8.2 fl (7.5-11.1); PLATELET COUNT 428 K/MM3 (134-434); RDW 20.3 % (11.6-15.6)
[2017-01-26] MEDS ORDERED: PT OWN MED DRAWER 7, Y5N ONE ×2 (08:21→22:13)
--- NOTE | 2017-01-26 09:15 | PN ---
Progress Note (short form) - Note Progress Note: Abdominal CT from 2016 reviewed and shows that IVC filter is tilted. If the degree of tilt is > 9 degrees from the IVC long axis it is possible that the filter is not able to catch emboli from the legs. I will ask radilologiist to measure angle on CT Problem List - Problems (1) DVT (deep venous thrombosis) Code(s): I82.409 - ACUTE EMBOLISM AND THOMBOS UNSP DEEP VN UNSP LOWER EXTREMITY Qualifiers: DVT location: lower extremity Affected thrombotic vein of extremity: unspecified vein of extremity Laterality: right Chronicity: acute Qualified Code(s): I82.401 - Acute embolism and thrombosis of unspecified deep veins of right lower extremity (2) Pulmonary embolism Code(s): I26.99 - OTHER PULMONARY EMBOLISM WITHOUT ACUTE COR PULMONALE Qualifiers: Pulmonary embolism type: other Chronicity: acute Acute cor pulmonale presence: without acute cor pulmonale Qualified Code(s): I26.99 - Other pulmonary embolism without acute cor pulmonale
[2017-01-26] MEDS ORDERED: METHOTREXATE 2.5 MG TABLET PO SCH (10:00)
[2017-01-26] MEDS: GABAPENTIN 300 MG CAPSULE (FP) PO SCH ×2 (11:33→22:18)
[2017-01-26] MEDS: MULTIVITAMINS (DAILY MVI) TABLET (FP) PO SCH (11:33)
[2017-01-26] MEDS: MONTELUKAST NA 10 MG TABLET PO SCH (11:33)
[2017-01-26] MEDS: ENOXAPARIN NA (PORCINE) 120 MG/0.8 ML DISP.SYRIN SQ SCH (11:33)
[2017-01-26] MEDS: FOLIC ACID 1 MG TABLET (FP) PO SCH (11:33)
[2017-01-26] MEDS: HYDROXYCHLOROQUINE SO4 200 MG TABLET (FP) PO SCH ×2 (11:34→22:18)
[2017-01-26] MEDS: BUDESONIDE/FORMETEROL FUMARATE 160/4.5 mcg INHALER IH SCH ×3 (11:34→22:19)
[2017-01-26 11:48] LABS: ANISOCYTOSIS 1+; FRAGMENTED CELL 1+; HYPOCHROMIA 2+; MICROCYTOSIS 2+; OVALOCYTES 1+; POIKILOCYTOSIS 4+; POLYCHROMASIA 1+; SPHEROCYTE 1+; TARGET CELLS 4+; TEAR DROP CELLS 1+
[2017-01-26 11:49] LABS: ACANTHOCYTES 1+; BURR CELLS 1+
--- NOTE | 2017-01-26 13:24 | PN ---
Teaching Attending Note Name of Resident: Paty Tong ATTENDING PHYSICIAN STATEMENT I saw and evaluated the patient. I reviewed the resident's note and discussed the case with the resident. I agree with the resident's findings and plan as documented. SUBJECTIVE:c/o SOB on exertion. cough on deep inspiration, non-productive. denies CP, fever, chills, N/V/C/D OBJECTIVE: Last Vital Signs Temp Pulse Resp BP Pulse Ox 98.8 F 73 20 106/59 97 01/26/17 06:00 01/26/17 06:00 01/26/17 06:00 01/26/17 06:00 01/26/17 05:39 General NAD CV S1 S2 RRR no murmur/rub/extremities Lungs CTA B/L no wheezing/rales/rhonchi Extremities no edema B/L UEor LE. no tenderness Assessment and plan 56yo F with PMH SLE, DVT s/p IVC filter, sjogren presented to the ER and was admitted to the ER for further evaluation of their emergent condition 1. DVT/PE- clinically stable. saturating 98% on RA. doppler B/L UE negative for DVT indicating PE is likely from R DVT. concern IVC filter is not in place. ? wrong angle and may require adjustment. will d/w vascular surgery if any procedures to be done at this time. on full dose daily lovenox. will need to f/ u hematology as outpatient for furhter workup. confirm with pharmacy what NOAC covered by [employer]. echo results pending. 2. SLE- no indictions of flare at this time. on MTX, folic acid, plaquenil. ( takes mtx on thursday, did not take this week will give dose today) 3. Microcytic anemia- no signs of bleeding. Hgb appears to be at baseline. check iron studies 4. DVT ppx- full dose lovenox 5. d/c home pending recommendations by vascular surgery, (if filter in place)
--- NOTE | 2017-01-26 16:22 | PN ---
Physical Exam: SUBJECTIVE: Patient seen and examined no new complaints, still with minor shortness of breath, has improved. Denies chest pain, palpitations, lightheadedness, wheezing. leg swelling. OBJECTIVE: Vital Signs Period Temp Pulse Resp BP Sys/Clark Pulse Ox Last 24 Hr 97.8 F-99.1 F 73-89 18-20 101-113/54-66 97-99 GENERAL: The patient is awake, alert, and fully oriented, in no acute distress. HEAD: Normal with no signs of trauma. EYES: PERRL, extraocular movements intact, sclera anicteric, conjunctiva clear. No ptosis. ENT: Ears normal, nares patent, oropharynx clear without exudates, moist mucous membranes. NECK: Trachea midline, full range of motion, supple. LUNGS: decreased breath sounds as lung bases HEART: Regular rate and rhythm, S1, S2 without murmur, rub or gallop. ABDOMEN: Soft, nontender, nondistended, normoactive bowel sounds, no guarding, no rebound, no hepatosplenomegaly, no masses. EXTREMITIES: 2+ pulses, warm, well-perfused, no edema. NEUROLOGICAL: Cranial nerves II through XII grossly intact. Normal speech, gait not observed. PSYCH: Normal mood, normal affect. SKIN: Warm, dry, normal turgor, no rashes or lesions noted Laboratory Results - last 24 hr 01/26/17 01/26/17 05:35 05:35 WBC 5.0 D RBC 4.03 Hgb 8.6 L Hct 28.3 L MCV 70.1 L MCHC 30.4 L RDW 20.3 H Plt Count 428 MPV 8.2 Polychromasia 1+ Hypochromic-Microcytic 2+ Poikilocytosis 4+ Anisocytosis 1+ Microcytosis 2+ Macrocytosis Few Spherocytes 1+ Target Cells 4+ Tear Drop Cells 1+ Ovalocytes 1+ [place] Cells 1+ Acanthocytes (Spur) 1+ Fragmented RBCs 1+ Morphology Comment Slide scanned Ferritin 16.002 Active Medications Generic Name Dose Route Start Last Admin Trade Name Freq PRN Reason Stop Dose Admin Acetaminophen 325 mg 01/25/17 16:24 Tylenol - PO 01/28/17 16:23 Q4H PRN PAIN Albuterol Sulfate 1 amp 01/24/17 16:43 Ventolin 0.083% Nebulizer Soln - NEB QID PRN WHEEZING Budesonide/Formoterol Fumarate 1 puff 01/24/17 22:00 01/26/17 11:34 Symbicort 160/4.5mcg - IH 1 puff BID MAGO Administration Bupropion HCl 150 mg 01/25/17 10:00 01/26/17 11:34 Wellbutrin Xl - PO 150 mg DAILY MAGO Administration Enoxaparin Sodium 110 mg 01/25/17 13:15 01/26/17 11:33 Lovenox - SQ 110 mg DAILY MAGO Administration Folic Acid 1 mg 01/25/17 10:00 01/26/17 11:33 Folic Acid - PO 1 mg DAILY MAGO Administration Gabapentin 300 mg 01/24/17 22:00 01/26/17 11:33 Neurontin - PO 300 mg BID MAGO Administration Guaifenesin 10 ml 01/24/17 23:33 01/24/17 23:45 Robitussin - PO 10 ml Q6H PRN Administration COUGH Hydroxychloroquine Sulfate 200 mg 01/24/17 22:00 01/26/17 11:34 Plaquenil - PO 200 mg BID MAGO Administration Montelukast Sodium 10 mg 01/25/17 10:00 01/26/17 11:33 Singulair - PO 10 mg DAILY MAGO Administration Multivitamins/Minerals/Vitamin C 1 tab 01/25/17 10:00 01/26/17 11:33 Tab-A-Vit - PO 1 tab DAILY MAGO Administration Oxycodone HCl 5 mg 01/25/17 16:24 Roxicodone - PO Q4H PRN PAIN SCALE 6-10 Zolpidem Tartrate 5 mg 01/24/17 04:33 01/25/17 01:13 Ambien - PO 5 mg HS PRN Administration IMAGING: vascular study of lower extremities which showed a large DVT extending from mid superficial femoral to distal popliteal vein with partial thrombosis in posterior tibial vein. CT chest performed during this admission shows the presence of acute pulmonary emboli in right upper lobe artery , posterior segmental branch of right lower lobe artery, multiple pulmonary opacities and a right axillary lymph node that is increased in size from prior - 1.3 cms now from 0.9 cms before ASSESSMENT/PLAN: This is a 56 year old female with significant PMHx of SLE, Sjogren, asthma, PE and DVT, s/p [place] IVC filter, presents with increasing shortness of breath x one week, admitted with an acute right lower extremity DVT and pulmonary emboli. # Acute right lower extremity DVT and pulmonary emboli: -on full dose lovenox ; -IVF filter placement tomorrow late afternoon -keep patient on clear liq diet for breakfast -npo after breakfast -echo pending -doppler UE negative -vascular consulted #SLE: controlled -cont metx; folic acid, plaquenil #microcytic anemia: -iron studies pending -heme consulted FEN: Fluids: po Electrolytes: wnl Diet: see above VTE prophylaxis: full dose lovenox Disposition: surgery in am Visit type - Emergency Visit Emergency Visit: Yes ED Registration Date: 01/24/17 Care time: The patient presented to the Emergency Department on the above date and was hospitalized for further evaluation of their emergent condition. - New Patient This patient is new to me today: Yes Date on this admission: 01/26/17 - Critical Care Critical Care patient: No
[2017-01-26] MEDS: ZOLPIDEM TARTRATE 5 MG TABLET PO PRN (22:18)
[2017-01-26] MEDS: oxyCODONE HCL 5 MG TABLET PO PRN (22:45)
[2017-01-27 06:06] LABS: SERUM IRON 14 ug/dL (27-159); TOTAL IRON BINDING CAPACITY 338 ug/dL (250-450); UIBC 324 ug/dL (131-425)
--- NOTE | 2017-01-27 08:20 | PN ---
[id number] suprarenal IVC filter. Medical optimization / clearance. Type and screen ordered. INR, PTT INR 1.15 (0.82-1.09) H 01/23/17 22:13 <Elliott Hughes - Last Filed: 01/27/17 08:20> - Note Progress Note: Current IVC filter is tilted and may be allowing emboli to pass. A new filter, possibly suprarenal, will be placed to correct this deficiency. <Jason Flynn - Last Filed: 01/27/17 09:28> Problem List - Problems (1) DVT (deep venous thrombosis) Code(s): I82.409 - ACUTE EMBOLISM AND THOMBOS UNSP DEEP VN UNSP LOWER EXTREMITY Qualifiers: DVT location: lower extremity Affected thrombotic vein of extremity: unspecified vein of extremity Laterality: right Chronicity: acute Qualified Code(s): I82.401 - Acute embolism and thrombosis of unspecified deep veins of right lower extremity (2) Pulmonary embolism Code(s): I26.99 - OTHER PULMONARY EMBOLISM WITHOUT ACUTE COR PULMONALE Qualifiers: Pulmonary embolism type: other Chronicity: acute Acute cor pulmonale presence: without acute cor pulmonale Qualified Code(s): I26.99 - Other pulmonary embolism without acute cor pulmonale <Jason Flynn - Last Filed: 01/27/17 09:28>
[2017-01-27] MEDS ORDERED: PT OWN MED DRAWER 7, Y5N ONE (08:44)
[2017-01-27 08:51] LABS: MCH 20.9 pg (25.7-33.7); MCHC 29.9 g/dl (32.0-36.0); MEAN PLT VOLUME 8.2 fl (7.5-11.1); PLATELET COUNT 474 K/MM3 (134-434); RDW 20.6 % (11.6-15.6); WHITE BLOOD COUNT 4.7 K/mm3 (4.0-10.0)
[2017-01-27 08:55] LABS: CALCIUM 8.5 mg/dL (8.5-10.1); COCKROFT - GAULT 115.515; CREATININE 0.6 mg/dL (0.55-1.02)
[2017-01-27 09:04] LABS: FERRITIN 18.604 ng/ml (6.9-282.5)
[2017-01-27] MEDS: HYDROXYCHLOROQUINE SO4 200 MG TABLET (FP) PO SCH ×2 (09:38→22:04)
[2017-01-27] MEDS: BUDESONIDE/FORMETEROL FUMARATE 160/4.5 mcg INHALER IH SCH ×2 (09:38→22:04)
[2017-01-27] MEDS: MULTIVITAMINS (DAILY MVI) TABLET (FP) PO SCH (09:38)
[2017-01-27] MEDS: FOLIC ACID 1 MG TABLET (FP) PO SCH (09:38)
[2017-01-27] MEDS: MONTELUKAST NA 10 MG TABLET PO SCH (09:38)
[2017-01-27 10:06] LABS: PLATELET ESTIMATE SLT INCREASED (NORMAL)
--- NOTE | 2017-01-27 12:52 | PN ---
Physical Exam: SUBJECTIVE: Patient seen and examined, going to OR today at 5:30PM for insertion of suprarenal IVC filter. No new complaints, breathing has improved. OBJECTIVE: Vital Signs Period Temp Pulse Resp BP Sys/Clark Pulse Ox Last 24 Hr 97.8 F-99.0 F 77-85 18-20 101-124/59-65 97 GENERAL: The patient is awake, alert, and fully oriented, in no acute distress. HEAD: Normal with no signs of trauma. EYES: PERRL, extraocular movements intact, sclera anicteric, conjunctiva clear. No ptosis. ENT: Ears normal, nares patent, oropharynx clear without exudates, moist mucous membranes. NECK: Trachea midline, full range of motion, supple. LUNGS: Breath sounds decreased at bases, clear to auscultation bilaterally, no wheezes, no crackles, no accessory muscle use. HEART: Regular rate and rhythm, S1, S2 without murmur, rub or gallop. ABDOMEN: Soft, nontender, nondistended, normoactive bowel sounds, no guarding, no rebound, no hepatosplenomegaly, no masses. EXTREMITIES: 2+ pulses, warm, well-perfused, no edema. NEUROLOGICAL: Cranial nerves II through XII grossly intact. Normal speech, gait not observed. PSYCH: Normal mood, normal affect. SKIN: Warm, dry, normal turgor, no rashes or lesions noted Laboratory Results - last 24 hr 01/26/17 01/27/17 01/27/17 05:35 06:10 06:10 WBC 4.7 RBC 4.25 Hgb 8.9 L Hct 29.8 L MCV 70.0 L MCHC 29.9 L RDW 20.6 H Plt Count 474 H MPV 8.2 Neutrophils % 56.0 Lymphocytes % 33.0 D Monocytes % 2.0 L Eosinophils % 8.0 H D Basophils % 1.0 D Differential Comment Manual diff done Platelet Estimate Slt increased Sodium 140 Potassium 4.2 Chloride 102 Carbon Dioxide 28 Anion Gap 10 BUN 7 D Creatinine 0.6 Random Glucose 80 Calcium 8.5 Iron 14 L TIBC 338 Iron Saturation 4 L Ferritin Vitamin B12 Blood Type Antibody Screen Crossmatch 01/27/17 01/27/17 06:10 08:45 WBC RBC Hgb Hct MCV MCHC RDW Plt Count MPV Neutrophils % Lymphocytes % Monocytes % Eosinophils % Basophils % Differential Comment Platelet Estimate Sodium Potassium Chloride Carbon Dioxide Anion Gap BUN Creatinine Random Glucose Calcium Iron TIBC Iron Saturation Ferritin 18.604 Vitamin B12 983 H Blood Type A POSITIVE Antibody Screen Negative Crossmatch See Detail Active Medications Generic Name Dose Route Start Last Admin Trade Name Freq PRN Reason Stop Dose Admin Acetaminophen 325 mg 01/25/17 16:24 Tylenol - PO 01/28/17 16:23 Q4H PRN PAIN Albuterol Sulfate 1 amp 01/24/17 16:43 Ventolin 0.083% Nebulizer Soln - NEB QID PRN WHEEZING Budesonide/Formoterol Fumarate 1 puff 01/24/17 22:00 01/27/17 09:38 Symbicort 160/4.5mcg - IH 1 puff BID MAGO Administration Bupropion HCl 150 mg 01/25/17 10:00 01/27/17 09:38 Wellbutrin Xl - PO 150 mg DAILY MAGO Administration Enoxaparin Sodium 110 mg 01/25/17 13:15 01/26/17 11:33 Lovenox - SQ 110 mg DAILY MAGO Administration Folic Acid 1 mg 01/25/17 10:00 01/27/17 09:38 Folic Acid - PO 1 mg DAILY MAGO Administration Gabapentin 300 mg 01/24/17 22:00 01/26/17 22:18 Neurontin - PO 300 mg BID MAGO Administration Guaifenesin 10 ml 01/24/17 23:33 01/24/17 23:45 Robitussin - PO 10 ml Q6H PRN Administration COUGH Hydroxychloroquine Sulfate 200 mg 01/24/17 22:00 01/27/17 09:38 Plaquenil - PO 200 mg BID MAGO Administration Montelukast Sodium 10 mg 01/25/17 10:00 01/27/17 09:38 Singulair - PO 10 mg DAILY MAGO Administration Multivitamins/Minerals/Vitamin C 1 tab 01/25/17 10:00 01/27/17 09:38 Tab-A-Vit - PO 1 tab DAILY MAGO Administration Oxycodone HCl 5 mg 01/25/17 16:24 01/26/17 22:45 Roxicodone - PO 5 mg Q4H PRN Administration PAIN SCALE 6-10 Zolpidem Tartrate 5 mg 01/24/17 04:33 01/26/17 22:18 Ambien - PO 5 mg HS PRN Administration ASSESSMENT/PLAN: IMAGING: vascular study of lower extremities which showed a large DVT extending from mid superficial femoral to distal popliteal vein with partial thrombosis in posterior tibial vein. CT chest performed during this admission shows the presence of acute pulmonary emboli in right upper lobe artery , posterior segmental branch of right lower lobe artery, multiple pulmonary opacities and a right axillary lymph node that is increased in size from prior - 1.3 cms now from 0.9 cms before ASSESSMENT/PLAN: This is a 56 year old female with significant PMHx of SLE, Sjogren, asthma, PE and DVT, s/p [place] filed IVC filter, presents with increasing shortness of breath x one week, admitted with an acute right lower extremity DVT and pulmonary emboli. # Acute right lower extremity DVT and pulmonary emboli: -on full dose lovenox ; (hold today for surgery) -echo shoing LV size, function wnl; trace to mild AR; mod to severe TR; RV mild dilation, RV systolic function normal -doppler UE negative -vascular taking to OR for IVC today #SLE: controlled -cont metx; folic acid, plaquenil #microcytic anemia: improving -iron studies Low iron, low iron saturation; TIBC and ferritin wnl -heme consulted FEN: Fluids: po Electrolytes: wnl Diet: npo for sx VTE prophylaxis: full dose lovenox (hold today) Disposition: surgery Visit type - Emergency Visit Emergency Visit: Yes ED Registration Date: 01/24/17 Care time: The patient presented to the Emergency Department on the above date and was hospitalized for further evaluation of their emergent condition. - New Patient This patient is new to me today: No - Critical Care Critical Care patient: No
[2017-01-27] MEDS: GABAPENTIN 300 MG CAPSULE (FP) PO SCH ×2 (13:43→22:04)
[2017-01-27] MEDS ORDERED: HEPARIN NA (PORCINE) 5,000 UNITS/ML 1ML VIAL ONE (15:31)
[2017-01-27] MEDS ORDERED: LIDOCAINE HCL 1%, 10 MG/ML (20ML VIAL) ONE (15:31)
--- NOTE | 2017-01-27 16:51 | PN ---
Teaching Attending Note Name of Resident: Paty Tong ATTENDING PHYSICIAN STATEMENT I saw and evaluated the patient. I reviewed the resident's note and discussed the case with the resident. I agree with the resident's findings and plan as documented. SUBJECTIVE: OBJECTIVE: Vital Signs Period Temp Pulse Resp BP Sys/Clark Pulse Ox Last 24 Hr 98 F-99.0 F 73-85 18-20 103-124/59-89 97-100 ASSESSMENT AND PLAN: 56yo F with PMH SLE, DVT s/p IVC filter, sjogren presented to the ER and was admitted to the ER for further evaluation of their emergent condition 1. DVT/PE- clinically stable. saturating 98% on RA. doppler B/L UE negative for DVT indicating PE is likely from R DVT. concern IVC filter is not in place. ? wrong angle and may require adjustment. will d/w vascular surgery if any procedures to be done at this time. on full dose daily lovenox. will need to f/ u hematology as outpatient for furhter workup. confirm with pharmacy what NOAC covered by [employer]. echo results pending. 2. SLE- no indictions of flare at this time. on MTX, folic acid, plaquenil. ( takes mtx on thursday, did not take this week will give dose today) 3. Microcytic anemia- no signs of bleeding. Hgb appears to be at baseline. check iron studies 4. DVT ppx- full dose lovenox 5. d/c home pending recommendations by vascular surgery, (if filter in place)
[2017-01-27] MEDS ORDERED: PROPOFOL 20 ML ONE ×4 (17:38)
[2017-01-27] MEDS ORDERED: MIDAZOLAM HCL 2 MG/2 ML SINGLE DOSE VIAL ONE (17:38)
[2017-01-27] MEDS ORDERED: LIDOCAINE HCL 2% (20ML MULTI-DOSE VIAL) NR ONE (17:39)
[2017-01-27] MEDS ORDERED: LIDOCAINE HCL 1%, 10 MG/ML (20ML VIAL) IJ ONE ×2 (18:35)
--- NOTE | 2017-01-27 18:50 | OP ---
Operative Note - Note: Operative Date: 01/27/17 Pre-Operative Diagnosis: DVT/PE. Malposition IVC filter Operation: Attempt cannulation right femoral vein. Findings: Small common femoral vein with obliterated lumen. Patient could not tolerate manipulation of wire in vein due to anxiety. Post-Operative Diagnosis: Same as Pre-op Surgeon: Jason Flynn Anesthesia: Local
[2017-01-27] MEDS: ZOLPIDEM TARTRATE 5 MG TABLET PO PRN (22:03)
[2017-01-27] MEDS: oxyCODONE HCL 5 MG TABLET PO PRN (22:04)
[2017-01-28 07:01] LABS: MCHC 30.3 g/dl (32.0-36.0); MEAN CELL VOLUME 69.4 fl (80-96); MEAN PLT VOLUME 7.8 fl (7.5-11.1); PLATELET COUNT 416 K/MM3 (134-434); RDW 20.5 % (11.6-15.6); WHITE BLOOD COUNT 5.3 K/mm3 (4.0-10.0)
[2017-01-28 07:15] LABS: CALCIUM 8.5 mg/dL (8.5-10.1); COCKROFT - GAULT 138.635; CREATININE 0.5 mg/dL (0.55-1.02)
[2017-01-28 08:06] LABS: HEMATOCRIT 31.4 % (34.0-46.6)
[2017-01-28] MEDS: FOLIC ACID 1 MG TABLET (FP) PO SCH (11:50)
[2017-01-28] MEDS: MULTIVITAMINS (DAILY MVI) TABLET (FP) PO SCH (11:51)
[2017-01-28] MEDS: HYDROXYCHLOROQUINE SO4 200 MG TABLET (FP) PO SCH ×2 (11:51→21:20)
[2017-01-28] MEDS: MONTELUKAST NA 10 MG TABLET PO SCH (11:51)
[2017-01-28] MEDS: GABAPENTIN 300 MG CAPSULE (FP) PO SCH ×2 (11:51→21:20)
[2017-01-28] MEDS: ENOXAPARIN NA (PORCINE) 120 MG/0.8 ML DISP.SYRIN SQ SCH (11:56)
[2017-01-28] MEDS ORDERED: HEPARIN NA (PORCINE) 5,000 UNITS/ML 1ML VIAL ONE (14:51)
[2017-01-28] MEDS ORDERED: LIDOCAINE HCL 1%, 10 MG/ML (20ML VIAL) ONE (14:51)
--- NOTE | 2017-01-28 15:10 | PN ---
Physical Exam: SUBJECTIVE: Patient seen and examined, did no get IVC yesterday, patient too anxious, Plan for today under anesthesia. No new complaints, denies chest pain, sob, leg swelling. OBJECTIVE: Vital Signs Period Temp Pulse Resp BP Sys/Clark Pulse Ox Last 24 Hr 98.1 F-99.5 F 71-85 12-20 103-143/58-84 96-100 GENERAL: The patient is awake, alert, and fully oriented, in no acute distress. HEAD: Normal with no signs of trauma. EYES: PERRL, extraocular movements intact, sclera anicteric, conjunctiva clear. No ptosis. ENT: Ears normal, nares patent, oropharynx clear without exudates, moist mucous membranes. NECK: Trachea midline, full range of motion, supple. LUNGS: decreased breath sounds, no wheezes, no crackles, no accessory muscle use. HEART: Regular rate and rhythm, S1, S2 without murmur, rub or gallop. ABDOMEN: Soft, nontender, nondistended, normoactive bowel sounds, no guarding, no rebound, no hepatosplenomegaly, no masses. EXTREMITIES: 2+ pulses, warm, well-perfused, no edema. NEUROLOGICAL: Cranial nerves II through XII grossly intact. Normal speech, gait not observed. PSYCH: Normal mood, normal affect. SKIN: Warm, dry, normal turgor, no rashes or lesions noted Laboratory Results - last 24 hr 01/27/17 01/28/17 01/28/17 06:10 06:00 06:00 WBC 5.3 RBC 4.03 Hgb 8.5 L Hct 31.4 L 28.0 L MCV 69.4 L MCHC 30.3 L RDW 20.5 H Plt Count 416 MPV 7.8 Sodium 140 Potassium 4.2 Chloride 103 Carbon Dioxide 30 Anion Gap 7 L BUN 7 Creatinine 0.5 L Random Glucose 83 Calcium 8.5 Folate 746 Folate Hemolysate 234.3 Active Medications Generic Name Dose Route Start Last Admin Trade Name Freq PRN Reason Stop Dose Admin Acetaminophen 325 mg 01/25/17 16:24 Tylenol - PO 01/28/17 16:23 Q4H PRN PAIN Albuterol Sulfate 1 amp 01/24/17 16:43 Ventolin 0.083% Nebulizer Soln - NEB QID PRN WHEEZING Budesonide/Formoterol Fumarate 1 puff 04/08/17 22:00 01/27/17 22:04 Symbicort 160/4.5mcg - IH 1 puff BID MAGO Administration Bupropion HCl 150 mg 01/25/17 10:00 01/28/17 11:52 Wellbutrin Xl - PO Not Given DAILY [facility] Enoxaparin Sodium 110 mg 01/25/17 13:15 01/28/17 11:56 Lovenox - SQ Not Given DAILY [facility] Folic Acid 1 mg 01/25/17 10:00 01/28/17 11:50 Folic Acid - PO Not Given DAILY [facility] Gabapentin 300 mg 01/24/17 22:00 01/28/17 11:51 Neurontin - PO Not Given BID [facility] Guaifenesin 10 ml 01/24/17 23:33 01/24/17 23:45 Robitussin - PO 10 ml Q6H PRN Administration COUGH Hydroxychloroquine Sulfate 200 mg 01/24/17 22:00 01/28/17 11:51 Plaquenil - PO Not Given BID [facility] Montelukast Sodium 10 mg 01/25/17 10:00 01/28/17 11:51 Singulair - PO Not Given DAILY [facility] Multivitamins/Minerals/Vitamin C 1 tab 01/25/17 10:00 01/28/17 11:51 Tab-A-Vit - PO Not Given DAILY [facility] Oxycodone HCl 5 mg 01/25/17 16:24 01/27/17 22:04 Roxicodone - PO 5 mg Q4H PRN Administration PAIN SCALE 6-10 Zolpidem Tartrate 5 mg 01/24/17 04:33 01/27/17 22:03 Ambien - PO 5 mg HS PRN Administration IMAGING: vascular study of lower extremities which showed a large DVT extending from mid superficial femoral to distal popliteal vein with partial thrombosis in posterior tibial vein. CT chest performed during this admission shows the presence of acute pulmonary emboli in right upper lobe artery , posterior segmental branch of right lower lobe artery, multiple pulmonary opacities and a right axillary lymph node that is increased in size from prior - 1.3 cms now from 0.9 cms before ASSESSMENT/PLAN: This is a 56 year old female with significant PMHx of SLE, Sjogren, asthma, PE and DVT, s/p Green filed IVC filter, presents with increasing shortness of breath x one week, admitted with an acute right lower extremity DVT and pulmonary emboli. # Acute right lower extremity DVT and pulmonary emboli: -on full dose lovenox ; (hold today for surgery) -echo shoing LV size, function wnl; trace to mild AR; mod to severe TR; RV mild dilation, RV systolic function normal -doppler UE negative -vascular taking to OR for IVC today #SLE: controlled -cont metx; folic acid, plaquenil #microcytic anemia: improving -iron studies Low iron, low iron saturation; TIBC and ferritin wnl -heme consulted FEN: Fluids: po Electrolytes: wnl Diet: npo for sx VTE prophylaxis: full dose lovenox (hold today) Disposition: surgery Visit type - Emergency Visit Emergency Visit: Yes ED Registration Date: 01/24/17 Care time: The patient presented to the Emergency Department on the above date and was hospitalized for further evaluation of their emergent condition. - New Patient This patient is new to me today: No - Critical Care Critical Care patient: No
--- NOTE | 2017-01-28 15:17 | PN ---
Teaching Attending Note Name of Resident: Paty Tong ATTENDING PHYSICIAN STATEMENT I saw and evaluated the patient. I reviewed the resident's note and discussed the case with the resident. I agree with the resident's findings and plan as documented. SUBJECTIVE: OBJECTIVE: Vital Signs Period Temp Pulse Resp BP Sys/Clark Pulse Ox Last 24 Hr 98.1 F-99.5 F 71-85 12-20 103-143/58-84 96-100 ASSESSMENT AND PLAN:
[2017-01-28 17:01] LABS: URINE APPEARANCE CLEAR; URINE BILIRUBIN NEGATIVE (NEGATIVE); URINE BLOOD NEGATIVE (NEGATIVE); URINE COLOR YELLOW; URINE GLUCOSE (UA) NEGATIVE (NEGATIVE); URINE KETONE NEGATIVE (NEGATIVE); URINE LEUK ESTERASE NEGATIVE (NEGATIVE); URINE NITRITE NEGATIVE (NEGATIVE); URINE PROTEIN NEGATIVE (NEGATIVE); URINE UROBILINOGEN NEGATIVE E.U./dl (0.2-1.0)
[2017-01-28] MEDS ORDERED: MIDAZOLAM HCL 2 MG/2 ML SINGLE DOSE VIAL ONE ×2 (17:17→17:23)
[2017-01-28] MEDS ORDERED: PROPOFOL 20 ML ONE (17:36)
[2017-01-28] MEDS ORDERED: LIDOCAINE HCL 1%, 10 MG/ML (20ML VIAL) IJ ONE (17:42)
[2017-01-28] MEDS ORDERED: LIDOCAINE HCL/PF 2% SDV 5ML VIAL ONE (17:42)
[2017-01-28] MEDS ORDERED: LACTATED RINGERS SOLUTION 1,000 ML IV SCH ×2 (18:00→18:31)
[2017-01-28] MEDS ORDERED: ONDANSETRON 4 MG/2 ML VIAL IVPUSH PRN ×2 (18:00→18:31)
--- NOTE | 2017-01-28 18:08 | OP ---
Operative Note - Note: Operative Date: 01/28/17 Pre-Operative Diagnosis: Pulmonary embolism Operation: Placement of IVC filter - jugular approach. Venogram IVC Findings: Distal IVC filling defect Suprarenal IVC > 30 mm diameter Patent IVC at level of renal veins. Implants: Prowers IVC Filter Post-Operative Diagnosis: Same as Pre-op Surgeon: Jason Flynn Anesthesiologist/ARC WELDER APPRENTICE: Philip Marie Anesthesia: Fractional Operative Report Dictated: Yes
[2017-01-28] MEDS ORDERED: ALBUTEROL SO4 0.083% IH SOL 2.5 MG/3 ML VIAL.NEB. NEB PRN (18:31)
[2017-01-28] MEDS ORDERED: guaiFENesin 200 MG/10 ML 10 ML UNIT-DOSE CUPS PO PRN (18:31)
[2017-01-28] MEDS ORDERED: ZOLPIDEM TARTRATE 5 MG TABLET PO PRN (18:31)
--- NOTE | 2017-01-28 18:43 | OP ---
DATE OF OPERATION: 01/28/2017 SURGEON: Jason Dominique MD PROCEDURE: Placement of inferior vena cava filter with jugular approach. Venogram of the vena cava. PREOPERATIVE DIAGNOSIS: Pulmonary embolism with malpositioned inferior vena cava filter. POSTOPERATIVE DIAGNOSIS: Pulmonary embolism with malpositioned inferior vena cava filter. ANESTHESIA: Fractional. ANESTHESIOLOGIST: Philpi Marie MD OPERATIVE FINDINGS: Vena cavogram revealed the old filter to be tilted in the distal inferior vena cava with possible filling defect along the left lateral wall of the cava, suggesting chronic thrombus. The proximal inferior vena cava was patent with a diameter of less than 30 mm distal to the renal veins but greater than 30 mm proximally. PROCEDURE: The patient was brought to the operating room and intravenous sedation was established. The right neck and chest were prepped with ChloraPrep. Time-out was performed. Real-time duplex imaging was used identify the right internal jugular vein, which was patent and compressible. Then 1% Xylocaine was infiltrated over the vein and the vein was cannulated under duplex guidance with a micropuncture needle. A wire was passed proximally into the right atrium and the needle was exchanged for a 5-Polish catheter. A Jobinasecond wire was then advanced through the right atrium and into the inferior vena cava and into the right iliac vein. The catheter was removed. The long introducer sheath for the Kings filter was then passed over the wire and positioned at the level of the old filter. Venography was then performed, with the above-noted findings. Due to the enlarged diameter of the suprarenal cava, decision was made to place the filter in an infrarenal position proximal to the old filter. The filter was then passed down through the sheath and deployed just distal to the right renal vein. Deployment was uncomplicated and the filter appeared to be in good position without excessive tilt. Repeat venography showed the filter attached just below the takeoff of the right renal vein. There was free flow through the filter. There was no evidence of thrombus at this level. The sheath was then removed from the neck and pressure applied until bleeding ceased. Sterile dressing was applied and the patient was taken to the recovery room in stable condition. JASON DOMINIQUE M.D. [id number]
--- NOTE | 2017-01-28 19:01 | OP ---
DATE OF OPERATION: 01/27/2017 SURGEON: Jason Dominique MD PROCEDURE: Attempted cannulation of right femoral vein under ultrasound guidance. PREOPERATIVE DIAGNOSIS: Deep vein thrombosis and pulmonary embolism with malpositioned inferior vena cava filter. ANESTHESIA: Local. FINDINGS: The right common femoral vein appeared patent on ultrasound guidance. It was small caliber and upon entering the vein, a wire could not be passed proximally. PROCEDURE: The patient was brought to the operating room and the right groin was prepped with ChloraPrep. Time-out was performed. Using realtime duplex imaging, the right common femoral vein was identified and was compressible. Then 1% Xylocaine was infiltrated in the skin and subcutaneous tissues overlying the vein. The vein was then cannulated, with duplex imaging, using a micropuncture needle. An attempt to pass the micropuncture wire proximally met with resistance and the wire would not pass. Contrast was injected through the needle and filled a small blind sac of vein. No proximal flow was seen. At this point the patient became uncomfortable and the decision was made to terminate the procedure. A sterile dressing was applied and she was brought back to her hospital room in stable condition. JASON DOMINIQUE M.D. [id number]
[2017-01-28] MEDS ORDERED: PT OWN MED DRAWER 7, Y5N ONE (21:16)
[2017-01-28] MEDS: BUDESONIDE/FORMETEROL FUMARATE 160/4.5 mcg INHALER IH SCH (21:21)
--- NOTE | 2017-01-28 22:36 | CONSULT ---
Consult - text type - Consultation Consultation Note: PAtient seen and examined s/p ivc filter placement no complaints AFVSS Cor: RSR, No murmurs, No gallops Lungs: Clear to P&A Abd: Soft, Normal bowel sounds, No organomegaly Ext:No significant edema Abnormal Lab Results 01/27/17 01/28/17 01/28/17 06:10 06:00 06:00 Hgb 8.5 L Hct 31.4 L 28.0 L MCV 69.4 L MCHC 30.3 L RDW 20.5 H Anion Gap 7 L Creatinine 0.5 L Home Medication List Medication Instructions Recorded Confirmed Type Montelukast Sodium [Singulair] 10 mg PO DAILY 04/29/12 01/24/17 History Gabapentin [Neurontin] 300 mg PO BID 01/24/17 01/24/17 History Active Medications Generic Name Dose Route Start Last Admin Trade Name Freq PRN Reason Stop Dose Admin Albuterol Sulfate 1 amp 01/28/17 18:31 Ventolin 0.083% Nebulizer Soln - NEB QID PRN WHEEZING Budesonide/Formoterol Fumarate 1 puff 01/28/17 22:00 01/28/17 21:21 Symbicort 160/4.5mcg - IH 1 puff BID MAGO Administration Bupropion HCl 150 mg 01/29/17 10:00 Wellbutrin Xl - PO DAILY [facility] Enoxaparin Sodium 110 mg 01/29/17 10:00 Lovenox - SQ DAILY [facility] Folic Acid 1 mg 01/29/17 10:00 Folic Acid - PO DAILY [facility] Gabapentin 300 mg 01/28/17 22:00 01/28/17 21:20 Neurontin - PO 300 mg BID MAGO Administration Guaifenesin 10 ml 01/28/17 18:31 Robitussin - PO Q6H PRN COUGH Hydroxychloroquine Sulfate 200 mg 01/28/17 22:00 01/28/17 21:20 Plaquenil - PO 200 mg BID MAGO Administration Lactated Ringer's 1,000 mls @ 75 mls/hr 01/28/17 18:31 01/28/17 21:13 Lactated Ringers Solution IV Not Given ASDIR MAGO Montelukast Sodium 10 mg 01/29/17 10:00 Singulair - PO DAILY [facility] Multivitamins/Minerals/Vitamin C 1 tab 01/29/17 10:00 Tab-A-Vit - PO DAILY [facility] Zolpidem Tartrate 5 mg 01/28/17 18:31 01/28/17 21:26 Ambien - PO 5 mg HS PRN Administration A/P 56 y/o female with Hx of SLE/Sjogrens, fibromyalgia, asthma , Hx of multiple prior DVT's with Green filed IVC filter in place per admitted with an acute right lower extremity DVT and pulmonary emboli. Tests performed during this admission include a vascular study of lower extremities which showed a large DVT extending from mid superficial femoral to distal popliteal vein with partial thrombosis in posterior tibial vein. CT chest performed during this admission shows the presene of acute pulmonary emboli in right upper lobe artery , posterior segmental branch of right lower lobe artery, multiple pulmonary opacities and a right axillary lymph node that is increased in size from prior - 1.3 cms now from 0.9 cms before recommendations are as follows - agree with low molecular weight heparin (lovenox) with plan to bridge to a NOAC (choice would be dictated by patient preference and coverage). Patient needs lifelong anticoagulation given her high risk with previous unprovoked DVT' s. --thrombophilia w/u -request surgical consult for biopsy of right axillary lynph node for malignancy work-up as node has increased in size over time. Please also request records from her PCP about recent mammograms, colon cancer screening etc to see if she has undergone age appropriate screening -patient also has anemia with Hgb of 8.7 on labs with a low MCV. will need gi/ vault person f/u and iron replacement
[2017-01-29] MEDS ORDERED: oxyCODONE HCL 5 MG TABLET PO ONE (00:09)
[2017-01-29 08:08] LABS: MCH 21.2 pg (25.7-33.7); MCHC 30.4 g/dl (32.0-36.0); MEAN CELL VOLUME 69.7 fl (80-96); PLATELET COUNT 399 K/MM3 (134-434); RDW 20.1 % (11.6-15.6); WHITE BLOOD COUNT 5.3 K/mm3 (4.0-10.0)
[2017-01-29 08:28] LABS: CALCIUM 8.3 mg/dL (8.5-10.1); COCKROFT - GAULT 138.635; CREATININE 0.5 mg/dL (0.55-1.02)
[2017-01-29] MEDS: MULTIVITAMINS (DAILY MVI) TABLET (FP) PO SCH (09:07)
[2017-01-29] MEDS: GABAPENTIN 300 MG CAPSULE (FP) PO SCH ×2 (09:07→22:49)
[2017-01-29] MEDS: MONTELUKAST NA 10 MG TABLET PO SCH (09:07)
[2017-01-29] MEDS: FOLIC ACID 1 MG TABLET (FP) PO SCH (09:07)
[2017-01-29] MEDS: HYDROXYCHLOROQUINE SO4 200 MG TABLET (FP) PO SCH ×2 (09:08→23:13)
[2017-01-29] MEDS: BUDESONIDE/FORMETEROL FUMARATE 160/4.5 mcg INHALER IH SCH ×2 (09:09→23:18)
[2017-01-29] MEDS ORDERED: FERROUS SO4 325 MG TABLET (FP) PO SCH (10:00)
[2017-01-29] MEDS ORDERED: ENOXAPARIN NA (PORCINE) 120 MG/0.8 ML DISP.SYRIN SQ SCH (10:00)
[2017-01-29 10:32] LABS: PLATELET ESTIMATE ADEQUATE (NORMAL)
[2017-01-29] MEDS ORDERED: PT OWN MED DRAWER 7, Y5N ONE ×3 (11:43→22:50)
--- NOTE | 2017-01-29 13:15 | PN ---
Physical Exam: SUBJECTIVE: Patient seen and examined, right neck from entry for IVC placement last night. NO surgery complications. Denies chest pain, sob, fever, chills, leg swelling. OBJECTIVE: Vital Signs Period Temp Pulse Resp BP Sys/Clark Pulse Ox Last 24 Hr 98 F-98.4 F 62-78 10-22 113-142/63-79 96-100 GENERAL: The patient is awake, alert, and fully oriented, in no acute distress. HEAD: Normal with no signs of trauma. EYES: PERRL, extraocular movements intact, sclera anicteric, conjunctiva clear. No ptosis. ENT: Ears normal, nares patent, oropharynx clear without exudates, moist mucous membranes. NECK: Trachea midline,rt jugular dressing clean in tact; no bleeding, swelling, erythema LUNGS: Breath sounds equal, clear to auscultation bilaterally, no wheezes, no crackles, no accessory muscle use. HEART: Regular rate and rhythm, S1, S2 without murmur, rub or gallop. ABDOMEN: Soft, nontender, nondistended, normoactive bowel sounds, no guarding, no rebound, no hepatosplenomegaly, no masses. EXTREMITIES: 2+ pulses, warm, well-perfused, right leg slight swollen; since admission NEUROLOGICAL: Cranial nerves II through XII grossly intact. Normal speech, gait not observed. PSYCH: Normal mood, normal affect. SKIN: Warm, dry, normal turgor, no rashes or lesions noted Laboratory Results - last 24 hr 01/28/17 01/29/17 01/29/17 14:40 05:35 05:35 WBC 5.3 RBC 4.03 Hgb 8.5 L Hct 28.1 L MCV 69.7 L MCHC 30.4 L RDW 20.1 H Plt Count 399 MPV 8.0 Neutrophils % 67.0 Lymphocytes % 24.0 D Monocytes % 3.0 L Eosinophils % 6.0 H Nucleated RBCs 1 H Differential Comment Manual diff done Platelet Estimate Adequate RBC Morphology Sodium 138 Potassium 4.3 Chloride 101 Carbon Dioxide 30 Anion Gap 7 L BUN 10 D Creatinine 0.5 L Random Glucose 78 Calcium 8.3 L Urine Color Yellow Urine Appearance Clear Urine pH 7.0 Ur Specific [place] 1.018 Urine Protein Negative Urine Glucose (UA) Negative Urine Ketones Negative Urine Blood Negative Urine Nitrite Negative Urine Bilirubin Negative Urine Urobilinogen Negative Ur Leukocyte Esterase Negative Active Medications Generic Name Dose Route Start Last Admin Trade Name Freq PRN Reason Stop Dose Admin Albuterol Sulfate 1 amp 01/28/17 18:31 Ventolin 0.083% Nebulizer Soln - NEB QID PRN WHEEZING Apixaban 5 mg 01/30/17 10:00 Eliquis - PO BID MAGO Budesonide/Formoterol Fumarate 1 puff 01/28/17 22:00 01/29/17 09:09 Symbicort 160/4.5mcg - IH 1 puff BID [facility]GO Administration Bupropion HCl 150 mg 01/29/17 10:00 01/29/17 09:08 Wellbutrin Xl - PO 150 mg DAILY MAGO Administration Folic Acid 1 mg 01/29/17 10:00 01/29/17 09:07 Folic Acid - PO 1 mg DAILY MAGO Administration Gabapentin 300 mg 01/28/17 22:00 01/29/17 09:07 Neurontin - PO 300 mg BID MAGO Administration Guaifenesin 10 ml 01/28/17 18:31 01/29/17 09:11 Robitussin - PO 10 ml Q6H PRN Administration COUGH Hydroxychloroquine Sulfate 200 mg 01/28/17 22:00 01/29/17 09:08 Plaquenil - PO 200 mg BID MAGO Administration Lactated Ringer's 1,000 mls @ 75 mls/hr 01/28/17 18:31 01/28/17 21:13 Lactated Ringers Solution IV Not Given ASDIR MAGO Montelukast Sodium 10 mg 01/29/17 10:00 01/29/17 09:07 Singulair - PO 10 mg DAILY [facility]O Administration Multivitamins/Minerals/Vitamin C 1 tab 01/29/17 10:00 01/29/17 09:07 Tab-A-Vit - PO 1 tab DAILY [facility]O Administration Oxycodone HCl 5 mg 01/29/17 13:02 Roxicodone - PO Q4H PRN PAIN Polysaccharide Iron Complex 150 mg 01/29/17 12:00 Niferex-150 - PO DAILY [facility] Zolpidem Tartrate 5 mg 01/28/17 18:31 01/28/17 21:26 Ambien - PO 5 mg HS PRN Administration ASSESSMENT/PLAN: IMAGING: vascular study of lower extremities which showed a large DVT extending from mid superficial femoral to distal popliteal vein with partial thrombosis in posterior tibial vein. CT chest performed during this admission shows the presence of acute pulmonary emboli in right upper lobe artery , posterior segmental branch of right lower lobe artery, multiple pulmonary opacities and a right axillary lymph node that is increased in size from prior - 1.3 cms now from 0.9 cms before -echo showing LV size, function wnl; trace to mild AR; mod to severe TR; RV mild dilation, RV systolic function normal ASSESSMENT/PLAN: This is a 56 year old female with significant PMHx of SLE, Sjogren, asthma, PE and DVT, s/p Green filed IVC filter, presents with increasing shortness of breath x one week, admitted with an acute right lower extremity DVT and pulmonary emboli. # Acute right lower extremity DVT and pulmonary emboli:POD #1 IVC filter placed -switch to eliquis 5mg bid tomorrow -vascular following #SLE: controlled -cont metx; folic acid, plaquenil -f/u with rhuematology outpatient #microcytic anemia: improving -iron studies Low iron, low iron saturation; TIBC and ferritin wnl -iron supplement daily -f/u with hem/onc #right axillary lymph node: increased since previous -follow up with hem/onc; surgery; pmd for biopsy as outpatient FEN: Fluids: po Electrolytes: wnl Diet: regular VTE prophylaxis:lovenox today; eliquis tomorrow Disposition: watch today; d/c in am; colonoscopy; negative according to the daughter mammogram 02/01/16 no change from previous in 2011; no evidence of malignancy Visit type - Emergency Visit Emergency Visit: Yes ED Registration Date: 01/24/17 Care time: The patient presented to the Emergency Department on the above date and was hospitalized for further evaluation of their emergent condition. - New Patient This patient is new to me today: No - Critical Care Critical Care patient: No
[2017-01-29] MEDS: IRON POLYSACCHARIDES 150 MG CAPSULE PO SCH (13:46)
[2017-01-29] MEDS: oxyCODONE HCL 5 MG TABLET PO PRN ×2 (14:58→23:19)
--- NOTE | 2017-01-29 17:27 | PN ---
Teaching Attending Note Name of Resident: Paty Tong ATTENDING PHYSICIAN STATEMENT I saw and evaluated the patient. I reviewed the resident's note and discussed the case with the resident. I agree with the resident's findings and plan as documented. SUBJECTIVE: OBJECTIVE: Vital Signs Period Temp Pulse Resp BP Sys/Clark Pulse Ox Last 24 Hr 98 F-98.4 F 62-78 10-22 116-142/65-79 96-100 ASSESSMENT AND PLAN:
--- NOTE | 2017-01-29 18:56 | PN ---
Progress Note (short form) - Note Progress Note: PAtient seen and examined c/o soreness of rt. neck aat site of ivc insertion. Also c/o hoarsenes an painful swallowing. Rash , itchy, rt. inner thight Last Vital Signs Temp Pulse Resp BP Pulse Ox 99.2 F 85 20 107/73 100 01/29/17 16:35 01/29/17 16:35 01/29/17 16:35 01/29/17 16:35 01/29/17 08:00 Cor: RSR, No murmurs, No gallops Lungs: Clear to P&A Abd: Soft, Normal bowel sounds, No organomegaly Ext:No significant edema Skin: No rashes, Integument intact Abnormal Lab Results 01/29/17 01/29/17 05:35 05:35 Hgb 8.5 L Hct 28.1 L MCV 69.7 L MCHC 30.4 L RDW 20.1 H Monocytes % 3.0 L Eosinophils % 6.0 H Nucleated RBCs 1 H Anion Gap 7 L Creatinine 0.5 L Calcium 8.3 L Active Medications Generic Name Dose Route Start Last Admin Trade Name Freq PRN Reason Stop Dose Admin Albuterol Sulfate 1 amp 01/28/17 18:31 Ventolin 0.083% Nebulizer Soln - NEB QID PRN WHEEZING Apixaban 5 mg 01/30/17 10:00 Eliquis - PO BID MAGO Budesonide/Formoterol Fumarate 1 puff 01/28/17 22:00 01/29/17 09:09 Symbicort 160/4.5mcg - IH 1 puff BID MAGO Administration Bupropion HCl 150 mg 01/29/17 10:00 01/29/17 09:08 Wellbutrin Xl - PO 150 mg DAILY [facility]O Administration Folic Acid 1 mg 01/29/17 10:00 01/29/17 09:07 Folic Acid - PO 1 mg DAILY [facility]O Administration Gabapentin 300 mg 01/28/17 22:00 01/29/17 09:07 Neurontin - PO 300 mg BID MAGO Administration Guaifenesin 10 ml 01/28/17 18:31 01/29/17 09:11 Robitussin - PO 10 ml Q6H PRN Administration COUGH Hydroxychloroquine Sulfate 200 mg 01/28/17 22:00 01/29/17 09:08 Plaquenil - PO 200 mg BID MAGO Administration Montelukast Sodium 10 mg 01/29/17 10:00 01/29/17 09:07 Singulair - PO 10 mg DAILY [facility] Administration Multivitamins/Minerals/Vitamin C 1 tab 01/29/17 10:00 01/29/17 09:07 Tab-A-Vit - PO 1 tab DAILY [facility]O Administration Oxycodone HCl 5 mg 01/29/17 13:02 01/29/17 14:58 Roxicodone - PO 5 mg Q4H PRN Administration PAIN Polysaccharide Iron Complex 150 mg 01/29/17 12:00 01/29/17 13:46 Niferex-150 - PO 150 mg DAILY [facility]O Administration Zolpidem Tartrate 5 mg 01/28/17 18:31 01/28/17 21:26 Ambien - PO 5 mg HS PRN Administration A/P 56 y/o female with Hx of SLE/Sjogrens, fibromyalgia, asthma , Hx of multiple prior DVT's with Green filed IVC filter in place admitted with an acute right lower extremity DVT and pulmonary emboli. Tests performed during this admission include a vascular study of lower extremities which showed a large DVT extending from mid superficial femoral to distal popliteal vein with partial thrombosis in posterior tibial vein. 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 Came of coumadin 3 yrs. ago. Discussed various a/c options with patient --coumadin vs NOACS. Discussed risks/ benefits of coumadin vs NOACs --including lack of antidote to eliquis and lack of data in patients with thrombophilias. After extensive discussion , patient prefers eliquis. Will change to eliquis 5mg bid in am. Patient has been on lovenox for 6 days. thrombophilia w/u as outpatient b/l axillary node adenopathy--?? inflammatory, related to luous needs biopsy/r/o malignancy need to notify PMD -patient also has anemia with Hgb of 8.7 on labs with a low MCV. will need gi/ ob gyn f/u and iron replacement. h/o gastric sleve. will need iv iron if inadequate response or intolerance to PO iron rash--rt. thigh--?? contact dermatitis--hydrocortisone/benadryl
[2017-01-29] MEDS ORDERED: diphenhydrAMINE HCL 25 MG CAPSULE (FP) PO ONE (20:36)
[2017-01-29] MEDS: HYDROCORTISONE 0.5% TOPICAL OINTMENT TUBE TP SCH (23:19)
[2017-01-30 08:21] LABS: MCH 21.5 pg (25.7-33.7); MCHC 30.8 g/dl (32.0-36.0); MEAN CELL VOLUME 69.6 fl (80-96); MEAN PLT VOLUME 8.3 fl (7.5-11.1); PLATELET COUNT 398 K/MM3 (134-434); RDW 20.2 % (11.6-15.6); WHITE BLOOD COUNT 5.2 K/mm3 (4.0-10.0)
[2017-01-30 09:01] LABS: CALCIUM 8.4 mg/dL (8.5-10.1); COCKROFT - GAULT 115.515; CREATININE 0.6 mg/dL (0.55-1.02); FREE T4 1.09 ng/dl (0.76-1.46); THYROID STIMULATING HORMONE 1.29 uIU/ml (0.358-3.74)
[2017-01-30 09:16] LABS: ANISOCYTOSIS 3+; FRAGMENTED CELL 1+; HYPOCHROMIA 3+; MICROCYTOSIS 1+; PLATELET ESTIMATE ADEQUATE (NORMAL); TARGET CELLS 4+
[2017-01-30] MEDS ORDERED: PT OWN MED DRAWER 7, Y5N ONE (09:34)
[2017-01-30] MEDS: MULTIVITAMINS (DAILY MVI) TABLET (FP) PO SCH (09:50)
[2017-01-30] MEDS: IRON POLYSACCHARIDES 150 MG CAPSULE PO SCH (09:50)
[2017-01-30] MEDS: FOLIC ACID 1 MG TABLET (FP) PO SCH (09:51)
[2017-01-30] MEDS: MONTELUKAST NA 10 MG TABLET PO SCH (09:51)
[2017-01-30] MEDS: HYDROXYCHLOROQUINE SO4 200 MG TABLET (FP) PO SCH (09:51)
[2017-01-30] MEDS: GABAPENTIN 300 MG CAPSULE (FP) PO SCH (09:52)
[2017-01-30] MEDS: BUDESONIDE/FORMETEROL FUMARATE 160/4.5 mcg INHALER IH SCH (09:53)
[2017-01-30] MEDS: HYDROCORTISONE 0.5% TOPICAL OINTMENT TUBE TP SCH (09:53)
[2017-01-30] MEDS ORDERED: APIXABAN 5 MG TABLET PO SCH (10:00)
--- NOTE | 2017-01-30 13:38 | PN ---
Progress Note (short form) - Note Progress Note: Patient seen and examined S/P IVC filter Begun on NOAC Thrombophilia work up as out patient Evaluation of lymphadenopathy as outpatient Last Vital Signs Temp Pulse Resp BP Pulse Ox 97.7 F 73 18 102/63 100 01/30/17 08:05 01/30/17 08:05 01/30/17 08:05 01/30/17 08:05 01/29/17 21:00 HEENT: STAS, EOM Intact Oropharynx: No thrush, No mucositis, dentures Neck: Supple Nodes: posterior cervical nodes bilaterally, bilateral axillary nodes inguinal nodes on left Breasts: Without masses Cor: RSR,systolic murmur Lungs: Clear to P&A Abd: Soft, Normal bowel sounds, No organomegaly Ext:No significant edema Skin: No rashes, Integument intact CBC, BMP 01/30/17 06:30 01/30/17 06:30 Current Medications Generic Name Dose Route Start Last Admin Trade Name Freq PRN Reason Stop Dose Admin Albuterol Sulfate 1 amp 01/28/17 18:31 Ventolin 0.083% Nebulizer Soln - NEB QID PRN WHEEZING Apixaban 5 mg 01/30/17 10:00 01/30/17 09:51 Eliquis - PO 5 mg BID MAGO Administration Budesonide/Formoterol Fumarate 1 puff 01/28/17 22:00 01/30/17 09:53 Symbicort 160/4.5mcg - IH 1 puff BID MAGO Administration Bupropion HCl 150 mg 01/29/17 10:00 01/30/17 09:52 Wellbutrin Xl - PO 150 mg DAILY MAGO Administration Folic Acid 1 mg 01/29/17 10:00 01/30/17 09:51 Folic Acid - PO 1 mg DAILY MAGO Administration Gabapentin 300 mg 01/28/17 22:00 01/30/17 09:52 Neurontin - PO 300 mg BID MAGO Administration Guaifenesin 10 ml 01/28/17 18:31 01/29/17 09:11 Robitussin - PO 10 ml Q6H PRN Administration COUGH Hydrocortisone 1 applic 01/29/17 20:45 01/30/17 09:53 Hytone 0.5% Ointment - TP 1 applic DAILY MAGO Administration Hydroxychloroquine Sulfate 200 mg 01/28/17 22:00 01/30/17 09:51 Plaquenil - PO 200 mg BID MAGO Administration Montelukast Sodium 10 mg 01/29/17 10:00 01/30/17 09:51 Singulair - PO 10 mg DAILY MAGO Administration Multivitamins/Minerals/Vitamin C 1 tab 01/29/17 10:00 01/30/17 09:50 Tab-A-Vit - PO 1 tab DAILY MAGO Administration Oxycodone HCl 5 mg 01/29/17 13:02 01/29/17 23:19 Roxicodone - PO 5 mg Q4H PRN Administration PAIN Polysaccharide Iron Complex 150 mg 01/29/17 12:00 01/30/17 09:50 Niferex-150 - PO 150 mg DAILY MAGO Administration Zolpidem Tartrate 5 mg 01/28/17 18:31 01/28/17 21:26 Ambien - PO 5 mg HS PRN Administration Impression: Hypercoagulable started on Eliquis SLE Diffuse lymphadenopathy Anemia-- out patient work up Plan: Thrombophilia work up as out patient Evaluation of lymphadenopathy Evaluation of anemia
--- NOTE | 2017-01-30 14:01 | PN ---
Teaching Attending Note Name of Resident: Paty Tong ATTENDING PHYSICIAN STATEMENT I saw and evaluated the patient. I reviewed the resident's note and discussed the case with the resident. I agree with the resident's findings and plan as documented. SUBJECTIVE: OBJECTIVE: Vital Signs Period Temp Pulse Resp BP Sys/Clark Pulse Ox Last 24 Hr 97.6 F-99.2 F 73-85 18-20 94-107/60-73 100 ASSESSMENT AND PLAN:
--- NOTE | 2017-01-30 14:45 | DS ---
Physical Exam: SUBJECTIVE: Patient seen and examined, neck pain improved., no new complaints. Denies cheat pain, sob, n,v, dysphagia, leg tenderness. OBJECTIVE: Vital Signs Period Temp Pulse Resp BP Sys/Clark Pulse Ox Last 24 Hr 97.6 F-99.2 F 73-85 18-20 94-107/60-73 100 PHYSICAL EXAM GENERAL: The patient is awake, alert, and fully oriented, in no acute distress. HEAD: Normal with no signs of trauma. EYES: PERRL, extraocular movements intact, sclera anicteric, conjunctiva clear. ENT: Ears normal, nares patent, oropharynx clear without exudates, moist mucous membranes. NECK: Trachea midline, full range of motion, supple. LUNGS: Breath sounds equal, clear to auscultation bilaterally, no wheezes, no crackles, no accessory muscle use. HEART: Regular rate and rhythm, S1, S2 without murmur, rub or gallop. ABDOMEN: Soft, nontender, nondistended, normoactive bowel sounds, no guarding, no rebound, no hepatosplenomegaly, no masses. EXTREMITIES: 2+ pulses, warm, well-perfused, right LE tenderness NEUROLOGICAL: Cranial nerves II through XII grossly intact. Normal speech, gait not observed. PSYCH: Normal mood, normal affect. SKIN: Warm, dry, normal turgor, no rashes or lesions noted. LABS Laboratory Results - last 24 hr 01/27/17 01/30/17 01/30/17 08:45 06:30 06:30 WBC RBC Hgb Hct MCV MCHC RDW Plt Count MPV Neutrophils % Lymphocytes % Monocytes % Eosinophils % Differential Comment Platelet Estimate Hypochromic-Microcytic Anisocytosis Microcytosis Macrocytosis Target Cells Fragmented RBCs Sodium 139 Potassium 4.4 Chloride 103 Carbon Dioxide 28 Anion Gap 8 BUN 9 Creatinine 0.6 Random Glucose 79 Calcium 8.4 L LD Total 265 H TSH 1.29 Free T4 1.09 Direct Antiglob Test Positive H Crossmatch See Detail 01/30/17 06:30 WBC 5.2 RBC 3.88 Hgb 8.3 L Hct 27.0 L MCV 69.6 L MCHC 30.8 L RDW 20.2 H Plt Count 398 MPV 8.3 Neutrophils % 37.0 L D Lymphocytes % 50.0 H D Monocytes % 7.0 D Eosinophils % 6.0 H Differential Comment Manual diff done Platelet Estimate Adequate Hypochromic-Microcytic 3+ Anisocytosis 3+ Microcytosis 1+ Macrocytosis 1+ Target Cells 4+ Fragmented RBCs 1+ Sodium Potassium Chloride Carbon Dioxide Anion Gap BUN Creatinine Random Glucose Calcium LD Total TSH Free T4 Direct Antiglob Test Crossmatch HOSPITAL COURSE: Date of Admission:01/24/17 Date of Discharge: 01/30/17 ASSESSMENT/PLAN: IMAGING: vascular study of lower extremities which showed a large DVT extending from mid superficial femoral to distal popliteal vein with partial thrombosis in posterior tibial vein. CT chest performed during this admission shows the presence of acute pulmonary emboli in right upper lobe artery , posterior segmental branch of right lower lobe artery, multiple pulmonary opacities and a right axillary lymph node that is increased in size from prior - 1.3 cms now from 0.9 cms before -echo showing LV size, function wnl; trace to mild AR; mod to severe TR; RV mild dilation, RV systolic function normal ASSESSMENT/PLAN: This is a 56 year old female with significant PMHx of SLE, Sjogren, asthma, PE and DVT, s/p Green filed IVC filter, presents with increasing shortness of breath x one week, admitted with an acute right lower extremity DVT and pulmonary emboli. # Acute right lower extremity DVT and pulmonary emboli: -mal functioning green filed filter; non retractable; therefore another IVC filter placed above it; no complications -eliquis 5mg bid -vascular follow up #SLE: controlled -cont metx; folic acid, plaquenil -f/u with rhuematology #microcytic anemia: improving -iron studies Low iron, low iron saturation; TIBC and ferritin wnl -iron supplement daily -f/u with hem/onc #right axillary lymph node: increased since previous -follow up with hem/onc/pmd for biopsy as outpatient colonoscopy; negative according to the daughter mammogram 02/01/16 no change from previous in 2011; no evidence of malignancy Minutes to complete discharge: 35 Discharge Summary Reason For Visit: DVT, PULMONARY EMBOLISM Current Active Problems DVT (deep venous thrombosis) (Acute) Deep vein thrombosis (DVT) of right lower extremity (Acute) H/O deep venous thrombosis (Acute) Pulmonary embolism (Acute) H/O Sjogren's disease (Chronic) H/O systemic lupus erythematosus (SLE) (Chronic) Condition: Improved - Instructions Diet, Activity, Other Instructions: Ms. Frank, you are being treated for pulmonary embolism and DVT. IVC filter was placed without any complications. Please take the blood thinner as directed. Vascular surgeon follow up next week. 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 If you experience any worsening of symptoms, including chest pain, sob, please return to the emergency room. Referrals: Puja Lorenzo [Primary Care Provider] - Tanisha Sellers MD [Staff Physician] - Jason Flynn MD [Staff Physician] - Disposition: HOME - Home Medications Comprehensive Discharge Medication List: Ambulatory Orders Montelukast Sodium [Singulair] 10 mg PO DAILY 04/29/12 Acetaminophen W/ Codeine #3 [Tylenol # 3 -] 1 tab PO BID PRN #0 tablet 03/15/13 Albuterol 0.083% Nebulizer Bailey [Ventolin 0.083% Nebulizer Soln -] 1 neb NEB QID PRN #0 vial 03/15/13 Albuterol Sulfate Inhaler - [Ventolin HFA Inhaler -] 1 inh IH Q6H PRN #0 inh Bupropion HCl [Budeprion Xl] 150 mg PO DAILY #0 tab.sr.24h 03/15/13 Dexlansoprazole [Dexilant -] 60 mg PO DAILY #0 cap.mp 03/15/13 Folic Acid - 1 mg PO DAILY #0 tablet 03/15/13 Hydroxychloroquine So4 [Plaquenil -] 200 mg PO BID #0 tablet 03/15/13 Methotrexate [Mexate -] 6 tab PO WEEKLY #0 tablet 03/15/13 Multivitamin [Multivitamins] 1 each PO DAILY #0 capsule 03/15/13 Salmeterol/Fluticasone [Advair 500Mcg/50Mcg -] 1 inh IH DAILY #0 inh 03/15/13 Gabapentin [Neurontin] 300 mg PO BID 01/24/17 Apixaban [Eliquis -] 5 mg PO BID #60 tablet 01/30/17 Budesonide/Formeterol Fumarate [SYMBICORT 160/4.5mcg -] 1 puff IH BID inhaler 01/30/17 Hydrocortisone 0.5% Ointment [Hytone 0.5% Ointment -] 1 applic TP DAILY tube Iron Polysaccharides [Niferex-150 -] 150 mg PO DAILY #30 cap 01/30/17 This patient is new to me today: No Emergency Visit: Yes ED Registration Date: 01/24/17 Care time: The patient presented to the Emergency Department on the above date and was hospitalized for further evaluation of their emergent condition. Critical Care patient: No - Discharge Referral Referred to [facility] No
[2017-01-30 14:57] VITALS: BP 110/62; PULSE 74; TEMP 98
== END 2017-01-30 15:41 | disposition home or self-care (01) | DRG 197 ==
LOC: JER 18:34 → JERBED 01-24 04:07 → J4W 01-24 22:22 → J8W 01-29 12:12
PROVIDERS: ADMIT Internal Medicine; ATTEND Internal Medicine
PROC: B51BYZA Fluoroscopy of Right Lower Extremity Veins using Other Contrast, Guidance (ICD-10-PCS; 2017-01-28)
PROC: 06H03DZ Insertion of Intraluminal Device into Inferior Vena Cava, Percutaneous Approach (ICD-10-PCS; principal; 2017-01-28 16:30)
DX: I82.431 Acute embolism and thrombosis of right popliteal vein (principal); I26.99 Other pulmonary embolism without acute cor pulmonale; D50.9 Iron deficiency anemia, unspecified; M32.9 Systemic lupus erythematosus, unspecified; D68.59 Other primary thrombophilia; R59.1 Generalized enlarged lymph nodes; I82.411 Acute embolism and thrombosis of right femoral vein
CPT/HCPCS: 36415; 71010-TC; 71020-TC; 71275-TC; 74000-TC; 76000-TC; 80048; 80053; 81003; 82550; 82607; 82728; 82747; 83010; 83540; 83550; 83615; 84439; 84443; 84484; 85014; 85025; 85027; 85610; 85730; 86850; 86880; 86900; 86901; 86922; 93005; 93010; 93306-TC; 93970-TC; 93971-TC; 93976; 94760; 99283-25; J1644; J8610

== ENCOUNTER → 2017-05-06 | Day surgery (SDC) | payer OTHER ==
--- NOTE | 2017-05-07 15:57 | PATH ---
Surgical Pathology Report Patient Name: SYLVESTER GODINEZ [facility]. Rec. #: [id number] /Age/Gender: 1960 (Age: 56) / F Account: [id number] Location: [facility] RADIOLOGY U Taken: 05/06/2017 Received: 05/06/2017 Reported: 05/07/2017 Physicians: Vargas Pantoja M.D. Specimen(s) Received LEFT AXILLARY LN CORE BIOPSY Clinical History Multiple axillary lymph nodes in patient with lupus Final Diagnosis AXILLARY LYMPH NODE, LEFT, CORE BIOPSY: FRAGMENTS OF BENIGN LYMPH NODE SHOWING REACTIVE CHANGES. Electronically Signed Day Cali M.D. Gross Description Received in formalin labeled "left axilla biopsy," is a 2.0 x 1.8 x 0.3 cm aggregate of multiple walsh-yellow, irregular to cylindrical portions of fibroadipose tissue admixed with blood clot. The formalin is filtered and the specimen is entirely submitted in one cassette. Time to formalin fixation: 2 minutes Total formalin fixation time: Approximately 6 hours. /05/06/2017 saudi/05/06/2017
== END | disposition home or self-care (01) ==
LOC: FRADUS-SUR 09:39
PROC: 07B53ZX Excision of Right Axillary Lymphatic, Percutaneous Approach, Diagnostic (ICD-10-PCS; principal; 2017-05-06)
PROC: BH47ZZZ Ultrasonography of Upper Extremity (ICD-10-PCS; 2017-05-06)
DX: R93.8 Abnormal findings on diagnostic imaging of other specified body structures (principal)
CPT/HCPCS: 38505; 76942-TC; 87899; 88305-TC; A4648

== ENCOUNTER 2017-07-10 07:24 | Day surgery (SDC) | payer OTHER ==
[2017-07-10] MEDS ORDERED: IRON SUCROSE INJECTION 100 MG in SODIUM CHLORIDE 100 ML IVPB ONE (10:00)
--- NOTE | 2017-07-10 10:41 | HP ---
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 Cardiovascular: Yes: Deep Vein Thrombosis Pulmonary: Yes: Asthma Gastrointestinal: Yes: Other (Hx of intestinal obstruction ) Hepatobiliary: Yes: Other (asplenia ) ...LMP: 01/22/12 Musculoskeletal: Yes: Other (fibromyalgia ) Rheumatology: Yes: Lupus, Other (Sjogrens syndrome ) - Current Medications Current Medications: Home Medications Medication Instructions Recorded Montelukast Sodium [Singulair] 10 mg PO DAILY 04/29/12 Acetaminophen W/ Codeine #3 1 tab PO BID PRN #0 tablet 03/15/13 [Tylenol # 3 -] Albuterol 0.083% Nebulizer Bailey 1 neb NEB QID PRN #0 vial 03/15/13 [Ventolin 0.083% Nebulizer Soln -] Albuterol Sulfate Inhaler - 1 inh IH Q6H PRN #0 inh 03/15/13 [Ventolin HFA Inhaler -] Bupropion HCl [Budeprion Xl] 150 mg PO DAILY #0 tab.sr.24h 03/15/13 Dexlansoprazole [Dexilant -] 60 mg PO DAILY #0 03/15/13 Folic Acid - 1 mg PO DAILY #0 tablet 03/15/13 Hydroxychloroquine So4 [Plaquenil 200 mg PO BID #0 tablet 03/15/13 -] Methotrexate [Mexate -] 6 tab PO WEEKLY #0 tablet 03/15/13 Multivitamin [Multivitamins] 1 each PO DAILY #0 capsule 03/15/13 Salmeterol/Fluticasone [Advair 1 inh IH DAILY #0 inh 03/15/13 500Mcg/50Mcg -] Gabapentin [Neurontin] 300 mg PO BID 01/24/17 Apixaban [Eliquis -] 5 mg PO BID #60 tablet 01/30/17 Budesonide/Formeterol Fumarate 1 puff IH BID inhaler 01/30/17 [SYMBICORT 160/4.5mcg -] Hydrocortisone 0.5% Ointment 1 applic TP DAILY tube 01/30/17 [Hytone 0.5% Ointment -] Iron Polysaccharides [Niferex-150 150 mg PO DAILY #30 cap 01/30/17 -] Satellite Physical Exam - Physical Examination General Appearance: Well Nourished, Well Developed, Alert & Oriented x3 Lung: Clear to auscultation Heart: Regular rate & rhythm, Normal S1, Normal S2 Abdomen: Soft, No tenderness Satellite Impression/Plan - Impression/Plan Impression: For gurvinder today. She will call office for f.u
[2017-07-10 11:02] VITALS: PULSE 70; TEMP 98.4
[2017-07-10 11:38] VITALS: BP 124/79
== END 2017-07-10 12:38 | disposition home or self-care (01) ==
LOC: JONCNONCHE 07:24 → J7W 10:03 → JONCNONCHE 12:38
PROVIDERS: ATTEND Internal Medicine Hematology & Oncology
PROC: 3E033GC Introduction of Other Therapeutic Substance into Peripheral Vein, Percutaneous Approach (ICD-10-PCS; principal; 2017-07-10)
DX: D50.9 Iron deficiency anemia, unspecified (principal)
CPT/HCPCS: 96365; J1756

== ENCOUNTER 2017-07-20 07:29 | Day surgery (SDC) | payer OTHER ==
[2017-07-20] MEDS ORDERED: IRON SUCROSE INJECTION 100 MG in SODIUM CHLORIDE 100 ML IVPB ONE (10:00)
[2017-07-20 17:12] LABS: MCH 23.6 pg (25.7-33.7); MCHC 31.4 g/dl (32.0-36.0); MEAN CELL VOLUME 75.2 fl (80-96); MEAN PLT VOLUME 8.3 fl (7.5-11.1); PLATELET COUNT 354 K/MM3 (134-434); RDW 21.9 % (11.6-15.6)
[2017-07-20 17:51] VITALS: BP 121/83; PULSE 65; TEMP 98
[2017-07-20 20:34] LABS: TOTAL CELLS COUNTED 100
[2017-07-20 20:37] LABS: PLATELET ESTIMATE SLT INCREASED (NORMAL)
[2017-07-20 20:38] LABS: ANISOCYTOSIS 1+; HYPOCHROMIA 2+; MACROCYTOSIS 1+; TARGET CELLS 1+
[2017-07-22 06:06] LABS: SERUM IRON 15 ug/dL (27-159); TOTAL IRON BINDING CAPACITY 420 ug/dL (250-450); UIBC 405 ug/dL (131-425)
== END 2017-07-20 17:10 | disposition home or self-care (01) ==
LOC: JONCCHEMO 07:29 → J7W 14:40 → JONCCHEMO 17:10
PROVIDERS: ATTEND Internal Medicine Hematology & Oncology
PROC: 3E033GC Introduction of Other Therapeutic Substance into Peripheral Vein, Percutaneous Approach (ICD-10-PCS; principal; 2017-07-20)
DX: D50.9 Iron deficiency anemia, unspecified (principal)
CPT/HCPCS: 36415; 82728; 83540; 83550; 85025; 96365; J1756

== ENCOUNTER 2017-07-27 07:30 | Day surgery (SDC) | payer OTHER ==
[2017-07-27] MEDS ORDERED: IRON SUCROSE INJECTION 100 MG in SODIUM CHLORIDE 100 ML IVPB ONE (08:00)
[2017-07-27 16:51] VITALS: TEMP 98.2
[2017-07-27 16:55] VITALS: BP 110/69; PULSE 64
--- NOTE | 2017-07-27 22:34 | HP ---
[facility] - Chief Complaint Chief Complaint: slightly improved fatigue. 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 Cardiovascular: Yes: Deep Vein Thrombosis Pulmonary: Yes: Asthma Gastrointestinal: Yes: Other (Hx of intestinal obstruction ) Hepatobiliary: Yes: Other (asplenia ) ...LMP: 01/22/12 Musculoskeletal: Yes: Other (fibromyalgia ) Rheumatology: Yes: Lupus, Other (Sjogrens syndrome ) - Current Medications Current Medications: Home Medications Medication Instructions Recorded Montelukast Sodium [Singulair] 10 mg PO DAILY 04/29/12 Acetaminophen W/ Codeine #3 1 tab PO BID PRN #0 tablet 03/15/13 [Tylenol # 3 -] Albuterol 0.083% Nebulizer Bailey 1 neb NEB QID PRN #0 vial 03/15/13 [Ventolin 0.083% Nebulizer Soln -] Albuterol Sulfate Inhaler - 1 inh IH Q6H PRN #0 inh 03/15/13 [Ventolin HFA Inhaler -] Bupropion HCl [Budeprion Xl] 150 mg PO DAILY #0 tab.sr.24h 03/15/13 Dexlansoprazole [Dexilant -] 60 mg PO DAILY #0 bharati.mp 03/15/13 Folic Acid - 1 mg PO DAILY #0 tablet 03/15/13 Hydroxychloroquine So4 [Plaquenil 200 mg PO BID #0 tablet 03/15/13 -] Methotrexate [Mexate -] 6 tab PO WEEKLY #0 tablet 03/15/13 Multivitamin [Multivitamins] 1 each PO DAILY #0 capsule 03/15/13 Salmeterol/Fluticasone [Advair 1 inh IH DAILY #0 inh 03/15/13 500Mcg/50Mcg -] Gabapentin [Neurontin] 300 mg PO BID 01/24/17 Apixaban [Eliquis -] 5 mg PO BID #60 tablet 01/30/17 Budesonide/Formeterol Fumarate 1 puff IH BID inhaler 01/30/17 [SYMBICORT 160/4.5mcg -] Hydrocortisone 0.5% Ointment 1 applic TP DAILY tube 01/30/17 [Hytone 0.5% Ointment -] Iron Polysaccharides [Niferex-150 150 mg PO DAILY #30 cap 01/30/17 -] Satellite Physical Exam - Physical Examination Vital Signs: Vital Signs Period Temp Pulse Resp BP Sys/Clark Pulse Ox Last 24 Hr 98.2 F-98.2 F 64-67 16-16 105-110/59-69 General Appearance: Alert & Oriented x3 Lung: Clear to auscultation, Normal air movement Heart: Regular rate & rhythm, Normal S1, Normal S2 Abdomen: Soft, No tenderness Extremities: No edema Neurological: Intact Satellite Impression/Plan - Impression/Plan Impression: Iron deficiency anemia: On iv iron. slow improvement. 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 h/o recurrent DVT/PE. Prothrombin heterozygote. On eliquis 5 mg bid. ATIII/Protein c/S nl. Check factor V leiden/lupus anticoagulant. anticardiolipins and anti b2 glycoprotein are nl
== END 2017-07-27 15:50 | disposition home or self-care (01) ==
LOC: JONCCHEMO 07:30 → J7W 15:10 → JONCCHEMO 15:50
PROVIDERS: ATTEND Internal Medicine Hematology & Oncology
PROC: 3E033GC Introduction of Other Therapeutic Substance into Peripheral Vein, Percutaneous Approach (ICD-10-PCS; principal; 2017-07-27)
DX: D50.9 Iron deficiency anemia, unspecified (principal)
CPT/HCPCS: 96365; J1756

== ENCOUNTER 2017-08-03 07:34 | Day surgery (SDC) | payer OTHER ==
[2017-08-03] MEDS ORDERED: IRON SUCROSE INJECTION 100 MG in SODIUM CHLORIDE 100 ML IVPB ONE (10:00)
[2017-08-03 16:33] LABS: MCH 24.4 pg (25.7-33.7); MCHC 31.8 g/dl (32.0-36.0); MEAN CELL VOLUME 76.8 fl (80-96); MEAN PLT VOLUME 8.4 fl (7.5-11.1); PLATELET COUNT 332 K/MM3 (134-434); RDW 23.8 % (11.6-15.6); WHITE BLOOD COUNT 4.9 K/mm3 (4.0-10.0)
[2017-08-03 18:32] VITALS: BP 130/72; PULSE 73; TEMP 97.4
[2017-08-03 19:24] LABS: PLATELET COMMENT2 NO CLOTTING DETECTED; PLATELET COMMENT3 MOD LARGE PLTS; PLATELET ESTIMATE ADEQUATE (NORMAL); TOTAL CELLS COUNTED 100
[2017-08-03 19:25] LABS: ANISOCYTOSIS 3+; HYPOCHROMIA 2+; POIKILOCYTOSIS 2+; POLYCHROMASIA 1+; REACTIVE LYMPHOCYTES 4 % (0-80); SMUDGE CELLS FEW
[2017-08-03 19:26] LABS: MICROCYTOSIS 1+
[2017-08-06 06:06] LABS: SERUM IRON 118 ug/dL (27-159); TOTAL IRON BINDING CAPACITY 515 ug/dL (250-450); UIBC 397 ug/dL (131-425)
[2017-08-06 08:07] LABS: HEMATOCRIT 33.1 % (34.0-46.6)
== END 2017-08-03 17:30 | disposition home or self-care (01) ==
LOC: JONCCHEMO 07:34 → J7W 14:55 → JONCCHEMO 17:30
PROVIDERS: ATTEND Internal Medicine Hematology & Oncology
PROC: 3E033GC Introduction of Other Therapeutic Substance into Peripheral Vein, Percutaneous Approach (ICD-10-PCS; principal; 2017-08-03)
DX: D50.9 Iron deficiency anemia, unspecified (principal); K90.9 Intestinal malabsorption, unspecified
CPT/HCPCS: 36415; 82525; 82607; 82728; 82747; 83540; 83550; 85014; 85025; 96365; 96417; J1756

== ENCOUNTER 2017-08-10 07:21 | Day surgery (SDC) | payer OTHER ==
[2017-08-10] MEDS ORDERED: IRON SUCROSE INJECTION 100 MG in SODIUM CHLORIDE 100 ML IVPB ONE (10:00)
[2017-08-10] MEDS ORDERED: CYANOCOBALAMIN (VITAMIN B-12) 1000 MCG/1 ML VIAL IM ONE (11:00)
[2017-08-10 15:55] VITALS: BP 122/70; PULSE 69; TEMP 98.6
== END 2017-08-10 15:57 | disposition home or self-care (01) ==
LOC: JONCNONCHE 07:21 → J7W 14:16 → JONCNONCHE 15:57
PROVIDERS: ATTEND Internal Medicine Hematology & Oncology
PROC: 3E033GC Introduction of Other Therapeutic Substance into Peripheral Vein, Percutaneous Approach (ICD-10-PCS; principal; 2017-08-10)
DX: D50.9 Iron deficiency anemia, unspecified (principal); D68.62 Lupus anticoagulant syndrome
CPT/HCPCS: 96365; 96417; J1756

== ENCOUNTER 2017-11-16 07:29 | Day surgery (SDC) | payer OTHER ==
[2017-11-16] MEDS ORDERED: IRON SUCROSE INJECTION 200 MG in SODIUM CHLORIDE 100 ML IVPB ONE (09:15)
[2017-11-16] MEDS ORDERED: IRON SUCROSE INJECTION 100 MG in SODIUM CHLORIDE 100 ML IVPB ONE (13:00)
[2017-11-16 16:15] VITALS: TEMP 97.7
[2017-11-16 16:16] VITALS: BP 128/75; PULSE 69
== END 2017-11-16 15:35 | disposition home or self-care (01) ==
LOC: JONCNONCHE 07:29 → J7W 14:45 → JONCNONCHE 15:35
PROVIDERS: ATTEND Internal Medicine Hematology & Oncology
PROC: 3E033GC Introduction of Other Therapeutic Substance into Peripheral Vein, Percutaneous Approach (ICD-10-PCS; principal; 2017-11-16)
DX: D50.9 Iron deficiency anemia, unspecified (principal); K90.9 Intestinal malabsorption, unspecified
CPT/HCPCS: 96365; J1756

== ENCOUNTER 2018-01-14 13:59 | Emergency (ER) | payer OTHER ==
[2018-01-14 14:21] VITALS: BP 121/77; PULSE 82; TEMP 98; BMI 31.7
--- NOTE | 2018-01-14 14:22 | PDOC ---
Rapid Medical Evaluation Time Seen by Provider: 01/14/18 14:16 Medical Evaluation: Allergies Allergy/AdvReac Type Severity Reaction Status Date / Time aspirin AdvReac Intermediate Difficulty Verified 01/23/17 20:37 Breathing 01/14/18 14:16 The patient presents with a chief complaint of: R knee pain for two days. Pt has pmh of dvt and lupus. Denies trauma or falling. Taking Tylenol with little relief. I have performed a brief in-person evaluation of this patient; Pertinent physical exam findings: ambulatory, but walking with limp, in no respiratory distress. No calf tenderness, (-) homans sign. Pain with extension of the knee. I have ordered the following: Nothing The patient will proceed to the ED for further evaluation.
[2018-01-14] MEDS ORDERED: predniSONE 20 MG TABLET (UD) PO ONE (14:59)
[2018-01-14] MEDS ORDERED: ACETAMINOPHEN 500 MG TABLET (FP) PO ONE (15:00)
[2018-01-14] MEDS ORDERED: ACETAMINOPHEN 500 MG TABLET (FP) ONE (15:04)
[2018-01-14] MEDS ORDERED: predniSONE 20 MG TABLET (UD) ONE (15:04)
--- NOTE | 2018-01-14 15:09 | PDOC ---
History of Present Illness - General Chief Complaint: Pain, Acute Stated Complaint: RT SIDE/ JOINT PAIN Time Seen by Provider: 01/14/18 14:16 History Source: Patient Exam Limitations: No Limitations - History of Present Illness Initial Comments: 01/14/18 15:07 exacerbation to right knee 2 days ago. HAs hx of large joint pain with Rhumatoid arthriutis pain . Has had injectyions to this knee but not for 5 years. Severity: reports: mild, moderate Pain Location: reports: lower extremity (right knee , swel;ling and pain x 2 days- ) Past History - Past Medical History Allergies/Adverse Reactions: Allergies Allergy/AdvReac Type Severity Reaction Status Date / Time aspirin AdvReac Intermediate Difficulty Verified 01/14/18 14:17 Breathing Home Medications: Ambulatory Orders Montelukast Sodium [Singulair] 10 mg PO DAILY 04/29/12 Albuterol 0.083% Nebulizer Bailey [Ventolin 0.083% Nebulizer Soln -] 1 neb NEB QID PRN #0 vial 03/15/13 Albuterol Sulfate Inhaler - [Ventolin HFA Inhaler -] 1 inh IH Q6H PRN #0 inh Bupropion HCl [Budeprion Xl] 150 mg PO DAILY #0 tab.sr.24h 03/15/13 Dexlansoprazole [Dexilant -] 60 mg PO DAILY #0 03/15/13 Folic Acid - 1 mg PO DAILY #0 tablet 03/15/13 Hydroxychloroquine So4 [Plaquenil -] 200 mg PO BID #0 tablet 03/15/13 Methotrexate [Mexate -] 6 tab PO WEEKLY #0 tablet 03/15/13 Multivitamin [Multivitamins] 1 each PO DAILY #0 capsule 03/15/13 Salmeterol/Fluticasone [Advair 500Mcg/50Mcg -] 1 inh IH DAILY #0 inh 03/15/13 Gabapentin [Neurontin] 300 mg PO BID 01/24/17 Apixaban [Eliquis -] 5 mg PO BID #60 tablet 01/30/17 Budesonide/Formeterol Fumarate [SYMBICORT 160/4.5mcg -] 1 puff IH BID inhaler 01/30/17 Hydrocortisone 0.5% Ointment [Hytone 0.5% Ointment -] 1 applic TP DAILY tube Iron Polysaccharides [Niferex-150 -] 150 mg PO DAILY #30 cap 01/30/17 Acetaminophen 325 mg PO Q4H PRN #30 tablet 01/14/18 predniSONE [Deltasone -] 20 mg PO BID #8 tablet 01/14/18 Anemia: Yes Asthma: Yes COPD: No DVT: Yes GI Disorders: Yes (SBO) - Surgical History Abdominal Surgery: Yes (gastric bypass,02/2013 ABD SURGERY) Cholecystectomy: Yes GI Surgery: Yes (SBO) - Immunization History Immunization Up to Date: No - Suicide/Smoking/Psychosocial Hx Smoking Status: No Smoking History: Never smoked Have you smoked in the past 12 months: No Number of Cigarettes Smoked Daily: 0 Hx Alcohol Use: No Drug/Substance Use Hx: No Substance Use Type: None Hx Substance Use Treatment: No *Physical Exam - Vital Signs Last Vital Signs Temp Pulse Resp BP Pulse Ox 98 F 82 19 121/77 100 01/14/18 14:17 01/14/18 14:17 01/14/18 14:17 01/14/18 14:17 01/14/18 14:17 - Physical Exam General Appearance: Yes: Nourished, Appropriately Dressed, Apparent Distress, Mild Distress HEENT: positive: CAMMIE, Normal ENT Inspection, TMs Normal, Pharynx Normal Neck: positive: Supple. negative: Tender Respiratory/Chest: positive: Normal Breath Sounds Extremity: positive: Normal Capillary Refill, Normal Inspection, Tender, Swelling. negative: Normal Range of Motion (neurovascualr intct to feet . No laxity, has stiffness and thenderness that is diffuse to joint. 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 We will treat with short course of steroids as patient unable to take non steroidal anti-inflammatory medications. *DC/Admit/Observation/Transfer Diagnosis at time of Disposition: Knee pain, right Qualifiers: Chronicity: acute Qualified Code(s): M25.561 - Pain in right knee - Discharge Dispostion Disposition: HOME Condition at time of disposition: Stable Admit: No - Referrals Referrals: Puja Lorenzo [Primary Care Provider] - Rufus Brown MD [Staff Physician] - - Patient Instructions Printed Discharge Instructions: DI for Knee Pain Additional Instructions: Rest, ice to area on and off for 15 minutes 4-6 times a day Avoid heavy lifting or exercise until pain and swelling is resolved or until further directed Keep area highly elevated to reduce swelling Use splints/Austyn wrap as directed Followup with orthopedist in one to 2 days if not improving, if significantly improved may wait one week for followup with orthopedist May use ibuprofen 2-200 mg tablets every 6 hours as needed for pain - Post Discharge Activity
== END 2018-01-14 15:31 | disposition home or self-care (01) ==
LOC: JERFT 13:59
DX: M06.861 Other specified rheumatoid arthritis, right knee (principal); M32.9 Systemic lupus erythematosus, unspecified; Z86.718 Personal history of other venous thrombosis and embolism; Z79.01 Long term (current) use of anticoagulants; D64.9 Anemia, unspecified; J45.909 Unspecified asthma, uncomplicated; Z98.84 Bariatric surgery status; Z90.49 Acquired absence of other specified parts of digestive tract
CPT/HCPCS: 99281-25

== ENCOUNTER 2018-02-10 07:26 | Day surgery (SDC) | payer OTHER ==
[~2018-02-10 07:26] MED LIST: IRON SUCROSE INJECTION 100 MG in SODIUM CHLORIDE 100 ML IVPB ONE
[2018-02-10] MEDS ORDERED: IRON SUCROSE INJECTION 100 MG in SODIUM CHLORIDE 100 ML IVPB ONE (10:00)
[2018-02-10 16:28] VITALS: BP 112/64; PULSE 70; TEMP 98.3
== END 2018-02-10 13:15 | disposition home or self-care (01) ==
LOC: JONCNONCHE 07:26 → J7W 12:19 → JONCNONCHE 13:15
PROVIDERS: ATTEND Internal Medicine Hematology & Oncology
PROC: 3E033GC Introduction of Other Therapeutic Substance into Peripheral Vein, Percutaneous Approach (ICD-10-PCS; principal; 2018-02-10)
DX: D50.9 Iron deficiency anemia, unspecified (principal)
CPT/HCPCS: 96365; J1756

== ENCOUNTER 2018-03-03 07:43 | Day surgery (SDC) | payer OTHER ==
[2018-03-03] MEDS ORDERED: IRON SUCROSE INJECTION 100 MG in SODIUM CHLORIDE 100 ML IVPB ONE (12:00)
[2018-03-03 16:09] VITALS: BP 118/84; PULSE 80; TEMP 97.9
== END 2018-03-03 13:00 | disposition home or self-care (01) ==
LOC: JONCNONCHE 07:43 → JONCCHEMO 07:43 → JONCNONCHE 13:00
PROVIDERS: ATTEND Internal Medicine Hematology & Oncology
PROC: 3E033GC Introduction of Other Therapeutic Substance into Peripheral Vein, Percutaneous Approach (ICD-10-PCS; principal; 2018-03-03)
DX: D50.9 Iron deficiency anemia, unspecified (principal)
CPT/HCPCS: 96365; J1756

== ENCOUNTER 2018-07-16 07:37 | Day surgery (SDC) | payer OTHER ==
[2018-07-16] MEDS: IRON SUCROSE INJECTION 200 MG in SODIUM CHLORIDE 100 ML IVPB ONE ×2 (10:22)
[2018-07-16 17:08] VITALS: TEMP 97.9
[2018-07-16 17:10] VITALS: BP 129/79; PULSE 62
== END 2018-07-16 11:50 | disposition home or self-care (01) ==
LOC: JONCNONCHE 07:37 → J7W 09:54 → JONCNONCHE 11:50
PROVIDERS: ATTEND Internal Medicine Hematology & Oncology
PROC: 3E033GC Introduction of Other Therapeutic Substance into Peripheral Vein, Percutaneous Approach (ICD-10-PCS; principal; 2018-07-16)
DX: D50.9 Iron deficiency anemia, unspecified (principal)
CPT/HCPCS: 96365; J1756

== ENCOUNTER → 2019-06-08 | Day surgery (SDC) | payer OTHER ==
--- NOTE | 2019-06-11 01:37 | PATH ---
Surgical Pathology Report Patient Name: SYLVESTER GODINEZ [facility]. Rec. #: [id number] /Age/Gender: 1960 (Age: 58) / F Account: [id number] Location: RADIOLOGY [facility] Taken: 06/08/2019 Received: 06/08/2019 Reported: 06/11/2019 Physicians: Nicole Sterling M.D. Specimen(s) Received LEFT AXILLA LYMPH NODE Clinical History Left axilla, 2.44 cm Sjogren's syndrome, enlarged bilateral axillary lymph nodes Final Diagnosis Axillary lymph node, left, core biopsy: Lymphoid tissue with heterogenEous lymphocytes, favor reactive process. No carcinoma or granuloma identified. See comment. Comment: Immunohistochemical stains performed and interpreted at [facility] show a heterogeneous population of CD20+ B cells admixed with CD3+ T cells. Cytokeratin AE1/3 is negative. Overall findings favor a reactive process. History of Sjogren's syndrome noted. Suggest clinical and radiologic correlation. Positive and negative controls (internal if applicable) show appropriate results. Electronically Signed Negin Del Cid M.D. Gross Description Received in formalin labeled "left axillary lymph node" are 3 cylindrical white-walsh soft tissue measuring 0.5 1 cm in length and 0.2 diameter. The entire specimen is submitted in one cassette. MLSZ/06/08/2019 sanjean-claude/06/08/2019
== END | disposition home or self-care (01) ==
LOC: JRADUS-SUR 08:44
PROVIDERS: ATTEND Internal Medicine Hematology & Oncology
PROC: 07B63ZX Excision of Left Axillary Lymphatic, Percutaneous Approach, Diagnostic (ICD-10-PCS; principal; 2019-06-08)
PROC: BH47ZZZ Ultrasonography of Upper Extremity (ICD-10-PCS; 2019-06-08)
DX: I89.8 Other specified noninfective disorders of lymphatic vessels and lymph nodes (principal); M35.00 Sjogren syndrome, unspecified
CPT/HCPCS: 19083; 88305-TC; 88341-TC; 88342-TC

== ENCOUNTER 2021-10-28 15:45 | Emergency (ER) | payer OTHER ==
[2021-10-28 15:49] VITALS: BP 139/89; PULSE 87; TEMP 97.7; BMI 32.5
[2021-10-28] MEDS ORDERED: METOCLOPRAMIDE HCL INJECTION 10 MG/2 ML VIAL IVPB ONE (17:04)
[2021-10-28] MEDS ORDERED: ACETAMINOPHEN 1000 MG/100 ML BAG IVPB ONE (17:04)
[2021-10-28] MEDS ORDERED: SODIUM CHLORIDE 500 ML IV STA (17:05)
[2021-10-28] MEDS ORDERED: METOCLOPRAMIDE HCL INJECTION 10 MG/2 ML VIAL ONE (17:29)
[2021-10-28] MEDS ORDERED: ACETAMINOPHEN INJECTION 100 ML IVPB ONE (17:29)
[2021-10-28 18:08] LABS: HEMATOCRIT 39.6 % (32.4-45.2); HEMOGLOBIN 12.8 GM/dL (10.7-15.3); MCH 26.5 pg (25.7-33.7); MCHC 32.3 g/dl (32.0-36.0); MEAN CELL VOLUME 82.2 fl (80-96); MEAN PLT VOLUME 9.7 fl (7.5-11.1); PLATELET COUNT 381 10^3/uL (134-434); RBC 4.82 M/mm3 (3.60-5.2); RDW 19.2 % (11.6-15.6)
[2021-10-28 18:14] LABS: INR 1.06 (0.83-1.09); PROTHROMBIN TIME (PATIENT) 12.2 SEC (9.7-13.0)
[2021-10-28 18:17] LABS: ACTIVATED PTT 31.9 SECONDS (25.2-36.5)
[2021-10-28 18:18] LABS: CHLORIDE 106 mmol/L (98-107); SODIUM 141 mmol/L (136-145)
[2021-10-28 18:20] LABS: CALCIUM 8.9 mg/dL (8.5-10.1)
[2021-10-28 18:21] LABS: ALBUMIN 3.8 g/dl (3.4-5.0); ANION GAP 6 MMOL/L (8-16); CO2 29 mmol/L (21-32); GLUCOSE,RANDOM 80 mg/dL (74-106)
[2021-10-28 18:23] LABS: CREATININE 0.6 mg/dL (0.55-1.3)
[2021-10-28 18:24] LABS: SGOT/AST 47 U/L (15-37); SGPT/ALT 29 U/L (13-61)
[2021-10-28 18:25] LABS: BILIRUBIN,TOTAL 0.4 mg/dL (0.2-1); TOT PROT 8.7 g/dl (6.4-8.2)
[2021-10-28 18:26] LABS: ALK PHOS 129 U/L (45-117)
[2021-10-28 23:15] LABS: ANISOCYTOSIS 1+; MACROCYTOSIS 1+; PLATELET ESTIMATE NORMAL; TARGET CELLS 2+
== END 2021-10-28 21:18 | disposition home or self-care (01) ==
LOC: JER 15:45
PROC: 3E033NZ Introduction of Analgesics, Hypnotics, Sedatives into Peripheral Vein, Percutaneous Approach (ICD-10-PCS; principal; 2021-10-28)
PROC: 3E033GC Introduction of Other Therapeutic Substance into Peripheral Vein, Percutaneous Approach (ICD-10-PCS; 2021-10-28)
PROC: 3E0337Z Introduction of Electrolytic and Water Balance Substance into Peripheral Vein, Percutaneous Approach (ICD-10-PCS; 2021-10-28)
DX: G44.209 Tension-type headache, unspecified, not intractable (principal)
CPT/HCPCS: 36415; 70450-TC; 71046-TC-FY; 80053; 82550; 84484; 85025; 85610; 85730; 93005; 93010; 96361; 96374; 96375; 99285-25; C9803-CS; U0003; U0005

== ENCOUNTER 2022-02-20 07:06 | Day surgery (SDC) | payer OTHER ==
[2022-02-20] MEDS ORDERED: FERRIC CARBOXYMALTOSE 750 MG in SODIUM CHLORIDE 250 ML IVPB ONE (10:00)
[2022-02-20] MEDS ORDERED: SODIUM CHLORIDE 250 ML IV ONE (10:00)
[2022-02-20 10:21] LABS: BASO % 0.8 % (0-2.0); EOS % 4.7 % (0-4.5); HEMATOCRIT 38.8 % (32.4-45.2); HEMOGLOBIN 12.3 GM/dL (10.7-15.3); LYMPH % 10.7 % (8-40); MCH 26.5 pg (25.7-33.7); MCHC 31.7 g/dl (32.0-36.0); MEAN CELL VOLUME 83.7 fl (80-96); MEAN PLT VOLUME 9.4 fl (7.5-11.1); NEUT % 73.8 % (42.8-82.8); PLATELET COUNT 286 10^3/uL (134-434); RBC 4.63 M/mm3 (3.60-5.2); RDW 17.1 % (11.6-15.6); WHITE BLOOD COUNT 4.7 K/mm3 (4.0-10.0)
[2022-02-20 10:42] LABS: ALBUMIN 3.3 g/dl (3.4-5.0); BLOOD UREA NITROGEN 5.6 mg/dL (7-18); CALCIUM 9.1 mg/dL (8.5-10.1)
[2022-02-20 10:45] LABS: CREATININE 0.6 mg/dL (0.55-1.3)
[2022-02-20 10:47] LABS: BILIRUBIN,TOTAL 0.7 mg/dL (0.2-1)
[2022-02-20 17:13] VITALS: BP 141/84; PULSE 80; TEMP 97.8
== END 2022-02-20 13:15 | disposition home or self-care (01) ==
LOC: JONCNONCHE 07:06
PROVIDERS: ATTEND Internal Medicine Hematology & Oncology
PROC: 3E033GC Introduction of Other Therapeutic Substance into Peripheral Vein, Percutaneous Approach (ICD-10-PCS; principal; 2022-02-20)
DX: D50.9 Iron deficiency anemia, unspecified (principal)
CPT/HCPCS: 36415; 80053; 85025; 96365; J1439

== ENCOUNTER 2022-02-27 06:34 | Day surgery (SDC) | payer OTHER ==
[2022-02-27 10:10] VITALS: TEMP 97.9
[2022-02-27] MEDS ORDERED: FERRIC CARBOXYMALTOSE 750 MG in SODIUM CHLORIDE 250 ML IVPB ONE (11:45)
[2022-02-27 17:00] VITALS: BP 137/81; PULSE 72
== END 2022-02-27 12:30 | disposition home or self-care (01) ==
LOC: JONCNONCHE 06:34
PROVIDERS: ATTEND Internal Medicine Hematology & Oncology
PROC: 3E033GC Introduction of Other Therapeutic Substance into Peripheral Vein, Percutaneous Approach (ICD-10-PCS; principal; 2022-02-27)
DX: D50.9 Iron deficiency anemia, unspecified (principal)
CPT/HCPCS: 96365; J1439

== ENCOUNTER 2022-10-11 12:19 | Emergency (ER) | payer OTHER ==
[2022-10-11 12:28] VITALS: RESP 18; TEMP 97.8; BMI 27.5
[2022-10-11] MEDS ORDERED: ACETAMINOPHEN INJECTION 100 ML IVPB ONE (13:15)
[2022-10-11] MEDS ORDERED: ACETAMINOPHEN 1000 MG/100 ML BAG IVPB ONE (13:15)
[2022-10-11] MEDS ORDERED: SODIUM CHLORIDE 1,000 ML IV STA (13:25)
[2022-10-11] MEDS ORDERED: morphine CARPU-JECT 4 MG/1 ML DISP.SYRIN IVPUSH ONE (14:17)
[2022-10-11] MEDS ORDERED: morphine SULFATE 4 MG/ML VIAL ONE (14:46)
[2022-10-11 15:09] LABS: HEMATOCRIT 47.7 % (32.4-45.2); HEMOGLOBIN 15.3 GM/dL (10.7-15.3); MEAN CELL VOLUME 93.8 fl (80-96); MEAN PLT VOLUME 9.9 fl (7.5-11.1); PLATELET COUNT 263 10^3/uL (134-434); RBC 5.08 M/mm3 (3.60-5.2); RDW 13.6 % (11.6-15.6); WHITE BLOOD COUNT 7.5 K/mm3 (4.0-10.0)
[2022-10-11] MEDS ORDERED: ONDANSETRON 4 MG/2 ML VIAL IVPUSH PRN (15:23)
[2022-10-11] MEDS ORDERED: PANTOPRAZOLE SODIUM 40 MG VIAL IVPUSH ONE (15:26)
[2022-10-11 15:34] LABS: ALBUMIN 3.4 g/dl (3.4-5.0)
[2022-10-11 15:35] LABS: BLOOD UREA NITROGEN 12.3 mg/dL (7-18)
[2022-10-11 15:39] LABS: BILIRUBIN,TOTAL 0.6 mg/dL (0.2-1); TOT PROT 8.4 g/dl (6.4-8.2)
[2022-10-11] MEDS ORDERED: PANTOPRAZOLE SODIUM 40 MG VIAL ONE (15:55)
[2022-10-11 16:22] LABS: EPI CELLS 2 /uL (0-25.1); HYALINE CASTS 0 /uL (0-3.1); PH,URINE 6.5 (5.0-8.0); URINE APPEARANCE CLEAR; URINE BACTERIA 61 /uL (0-1359); URINE BILIRUBIN NEGATIVE (NEGATIVE); URINE COLOR YELLOW; URINE GLUCOSE (UA) NEGATIVE (NEGATIVE); URINE KETONE TRACE (NEGATIVE); URINE LEUK ESTERASE NEGATIVE (NEGATIVE); URINE NITRITE NEGATIVE (NEGATIVE); URINE PROTEIN NEGATIVE (NEGATIVE); URINE RBC 246 /uL (0-23.9); URINE UROBILINOGEN 0.2 mg/dL (0.2-1.0); URINE WBC 9 /uL (0-25.8)
[2022-10-11 18:36] VITALS: BP 132/78; PULSE 83
[2022-10-11] MEDS ORDERED: MAG HYDROX/AL HYDROX/SIMETH 30 ML UNIT-DOSE CUP PO ONE (18:41)
[2022-10-11] MEDS ORDERED: MAG HYDROX/AL HYDROX/SIMETH 30 ML UNIT-DOSE CUP ONE ×2 (18:44→20:31)
== END 2022-10-11 20:35 | disposition home or self-care (01) ==
LOC: JER 12:19
PROC: 3E0333Z Introduction of Anti-inflammatory into Peripheral Vein, Percutaneous Approach (ICD-10-PCS; principal; 2022-10-11)
PROC: 3E033NZ Introduction of Analgesics, Hypnotics, Sedatives into Peripheral Vein, Percutaneous Approach (ICD-10-PCS; 2022-10-11)
PROC: 3E033GC Introduction of Other Therapeutic Substance into Peripheral Vein, Percutaneous Approach (ICD-10-PCS; 2022-10-11)
PROC: 3E033GC Introduction of Other Therapeutic Substance into Peripheral Vein, Percutaneous Approach (ICD-10-PCS; 2022-10-11)
PROC: 3E0337Z Introduction of Electrolytic and Water Balance Substance into Peripheral Vein, Percutaneous Approach (ICD-10-PCS; 2022-10-11)
DX: R11.10 Vomiting, unspecified (principal); R10.9 Unspecified abdominal pain
CPT/HCPCS: 0241U-QW; 36415; 74178-TC; 80053; 81003; 82271; 83605; 83690; 85027; 87086; 87186; 93005; 93010; 99285-25; Q9967

== ENCOUNTER 2024-09-07 13:13 | Day surgery (SDC) | payer OTHER ==
[2024-09-07] MEDS: FERRIC CARBOXYMALTOSE 750 MG in SODIUM CHLORIDE 250 ML IVPB ONE (13:36)
[2024-09-07 15:18] VITALS: RESP 18; TEMP 98.8
[2024-09-07 15:22] VITALS: BP 117/73; PULSE 84
== END 2024-09-07 15:00 | disposition home or self-care (01) ==
LOC: JONCCHEMO 13:13 → J7W 13:15 → JONCCHEMO 15:00
PROVIDERS: ATTEND Internal Medicine Hematology & Oncology
PROC: 3E033GC Introduction of Other Therapeutic Substance into Peripheral Vein, Percutaneous Approach (ICD-10-PCS; principal; 2024-09-07)
DX: D50.9 Iron deficiency anemia, unspecified (principal)
CPT/HCPCS: 96365; J1439

== ENCOUNTER 2024-09-14 14:34 | Day surgery (SDC) | payer OTHER ==
[2024-09-14] MEDS: FERRIC CARBOXYMALTOSE 750 MG in SODIUM CHLORIDE 250 ML IVPB ONE (13:42)
[2024-09-14 19:15] VITALS: BP 118/64; PULSE 84; RESP 20; TEMP 98.1
== END 2024-09-14 14:50 | disposition home or self-care (01) ==
LOC: JONCNONCHE 14:34 → J7W 14:35 → JONCNONCHE 14:50
PROVIDERS: ATTEND Internal Medicine Hematology & Oncology
PROC: 3E033GC Introduction of Other Therapeutic Substance into Peripheral Vein, Percutaneous Approach (ICD-10-PCS; principal; 2024-09-14)
DX: D50.9 Iron deficiency anemia, unspecified (principal)
CPT/HCPCS: 96365; J1439